=== PATIENT | female | born 1955 | race Caucasian/White ===

== ENCOUNTER 2019-02-24 09:06 | Emergency (ER) | payer BC, OTHER ==
[2019-02-24] MEDS ORDERED: Sodium Chloride 0.9% 10 ML Syringe FLUSH PRN ×2 (09:28→09:59)
[2019-02-24] MEDS ORDERED: Ondansetron 4 MG/2 ML SDV IVPUSH ONE (09:28)
[2019-02-24] MEDS ORDERED: Sodium Chloride 0.9% 1,000 ML IV STA (09:28)
[2019-02-24] MEDS ORDERED: Diatrizoate Meglumine/Diatrizoate Sodium 37% 120 ML Bottle PO ONE (09:59)
[2019-02-24] MEDS ORDERED: Iopamidol 612 MG/ML 100 ML Bottle IVPUSH ONE (09:59)
[2019-02-24] MEDS ORDERED: HYDROmorphone 1 MG/ML Syringe IVPUSH ONE (10:23)
[2019-02-24] MEDS ORDERED: fentaNYL 100 MCG/2 ML SDV IVPUSH ONE (11:45)
--- NOTE | 2019-02-24 11:46 | CT ---
CT abdomen and pelvis Technique: Multiple axial sections were obtained from above the dome of the diaphragm inferiorly through the pubic symphysis. Intravenous and oral contrast was utilized. Delayed images were also obtained through the abdomen and pelvis. Comparison: No prior abdominal imaging is available. Findings: Visualized lung bases show nothing acute. Cyst is noted within the left lobe of the liver measuring 1.8 cm. No additional abnormality is appreciated within the liver. Surgical clips are seen from prior cholecystectomy. Spleen appears within normal limits. Adrenal gland on the right side shows a nodule which appears decreased in density which is most likely due to to an adrenal adenoma measuring 1.6 cm. Pancreas is within normal limits. Aorta shows no aneurysm. Atherosclerotic calcification noted within the aorta. Multiple parapelvic cysts seen within both kidneys. Several small cortical cysts are also noted. Delayed images show contrast excretion into nondilated ureters with contrast noted within the bladder. No retroperitoneal adenopathy is seen. No mesenteric abnormalities are seen. Short appendix is seen believed to be within normal limits. Anastomotic sutures are noted at the junction of the sigmoid colon and descending colon. Several sigmoid diverticuli are seen near the junction of the descending and sigmoid colon. Very minimal inflammatory change is seen around one of the diverticuli and very minimal diverticulitis is possible. No additional pelvic abnormality is seen. Bone window settings were reviewed. Degenerative change scattered within the spine. Impression: 1. Possible minimal diverticulitis. 2. Other findings as noted above believed to be incidental. Diagnostic code #3 This report was dictated in [place] Standard Time
[2019-02-24] MEDS ORDERED: cefTRIAXone 2 GM in Sodium Chloride 0.9% 100 ML IV ONE (12:35)
--- NOTE | 2019-02-24 13:12 | EDM.PDOC ---
ED HPI GENERAL MEDICAL PROBLEM - General Chief Complaint: Abdominal Pain Stated Complaint: LOWER ABDOMINAL PAIN Time Seen by Provider: 02/24/19 09:19 Source of Information: Reports: Patient History Limitations: Reports: No Limitations - History of Present Illness INITIAL COMMENTS - FREE TEXT/NARRATIVE: The patient presents with lower abdominal pain. This started a few days ago. She has a history of diverticulitis and had a sigmoid resection years ago. She has no fever or chills. She has no nausea or vomiting but she has decreased appetite. She has no dysuria. She has no chest pain or shortness of breath. Onset: Gradual Duration: Day(s): Location: Reports: Abdomen Quality: Reports: Sharp Severity: Moderate Improves with: Reports: None Worsens with: Reports: None Associated Symptoms: Denies: Chest Pain, Cough, Fever/Chills, Headaches, Nausea/ Vomiting, Shortness of Breath Lower Abdominal Pain Score (Numeric/FACES): 8 - Related Data Allergies Allergy/AdvReac Type Severity Reaction Status Date / Time NARCOTICS AdvReac Nausea and Uncoded 02/24/19 09:15 Vomiting Home Meds: Home Meds Amoxicillin/Potassium Clav [Augmentin 875-125 Tablet] 1 each PO BID #20 tablet 02/24/19 [Rx] Hydrocodone/Acetaminophen [Hydrocodon-Acetaminophen 5-325] 1 - 2 each PO Q6HR PRN #20 tablet 02/24/19 [Rx] Omeprazole Magnesium [Prilosec Otc] 20 mg PO DAILY 02/24/19 [History] Past Medical History HEENT History: Reports: Impaired Vision Cardiovascular History: Reports: Heart Murmur Gastrointestinal History: Reports: Cholelithiasis, GERD, Other (See Below) Genitourinary History: Reports: None Musculoskeletal History: Reports: Arthritis Neurological History: Reports: Migraines Psychiatric History: Reports: None Endocrine/Metabolic History: Reports: None Hematologic History: Reports: None Immunologic History: Reports: None Oncologic (Cancer) History: Reports: None Dermatologic History: Reports: None - Infectious Disease History Infectious Disease History: Reports: None - Past Surgical History HEENT Surgical History: Reports: Adenoidectomy, Oral Surgery, Tonsillectomy GI Surgical History: Reports: Cholecystectomy, Colon Other GI Surgeries/Procedures: resection Social & Family History - Family History Family Medical History: Noncontributory - Tobacco Use Smoking Status *Q: Never Smoker - Caffeine Use Caffeine Use: Reports: Coffee, Tea - Recreational Drug Use Recreational Drug Use: No - Living Situation & Occupation Living situation: Reports: (Self-employed) Occupation: Employed ED ROS GENERAL - Review of Systems Review Of Systems: See Below Constitutional: Reports: No Symptoms HEENT: Reports: No Symptoms Respiratory: Reports: No Symptoms Cardiovascular: Reports: No Symptoms Endocrine: Reports: No Symptoms GI/Abdominal: Reports: Abdominal Pain : Reports: No Symptoms Musculoskeletal: Reports: No Symptoms ED EXAM, GI/ABD - Physical Exam Exam: See Below Exam Limited By: No Limitations General Appearance: Alert, No Apparent Distress Ears: Normal External Exam Nose: Normal Inspection Head: Atraumatic, Normocephalic Neck: Normal Inspection Respiratory/Chest: No Respiratory Distress, Lungs Clear, Normal Breath Sounds Cardiovascular: Regular Rate, Rhythm, No Edema, No Murmur GI/Abdominal Exam: Soft, No Organomegaly, No Mass, Tender (Moderate tenderness to the lower abdomen) Course - Vital Signs Last Recorded V/S: Last Vital Signs Temp 98.8 F 02/24/19 09:13 Pulse 78 02/24/19 09:13 Resp 16 02/24/19 09:13 BP 136/83 02/24/19 09:13 Pulse Ox 97 02/24/19 09:13 - Orders/Labs/Meds Orders: Active Orders 24 hr Category Date Time Status Peripheral IV Care [RC] . DIRECTED Care 02/24/19 09:29 Active Sodium Chloride 0.9% [Saline Flush] Med 02/24/19 09:28 Active 10 ml FLUSH ASDIRECTED PRN Sodium Chloride 0.9% [Saline Flush] Med 02/24/19 09:59 Active 10 ml FLUSH ONETIME PRN ED Antiemetic Medication Reflex [OM.PC] Stat Oth 02/24/19 09:29 Ordered Peripheral IV Insertion Adult [OM.PC] Stat Oth 02/24/19 09:28 Ordered Medication Orders Sodium Chloride (Saline Flush) 10 ml FLUSH ASDIRECTED PRN PRN Reason: Keep Vein Open Last Admin: 02/24/19 09:41 Dose: 10 ml Sodium Chloride (Saline Flush) 10 ml FLUSH ONETIME PRN PRN Reason: IV FLUSH Last Admin: 02/24/19 10:53 Dose: 10 ml Labs: Laboratory Tests 02/24/19 02/24/19 02/24/19 Range/Units 09:25 09:35 09:35 WBC 6.84 (3.98-10.04) K/mm3 RBC 4.81 (3.98-5.22) M/mm3 Hgb 13.3 (11.2-15.7) gm/dl Hct 40.8 (34.1-44.9) % MCV 84.8 (79.4-94.8) fl MCH 27.7 (25.6-32.2) pg MCHC 32.6 (32.2-35.5) g/dl RDW Std Deviation 47.4 H (36.4-46.3) fL Plt Count 263 (182-369) K/mm3 MPV 8.5 L (9.4-12.3) fl Neut % (Auto) 66.5 (34.0-71.1) % Lymph % (Auto) 23.1 (19.3-51.7) % [place] % (Auto) 7.2 (4.7-12.5) % Eos % (Auto) 2.3 (0.7-5.8) Baso % (Auto) 0.6 (0.1-1.2) % Neut # (Auto) 4.55 (1.56-6.13) K/mm3 Lymph # (Auto) 1.58 (1.18-3.74) K/mm3 [place] # (Auto) 0.49 H (0.24-0.36) K/mm3 Eos # (Auto) 0.16 (0.04-0.36) K/mm3 Baso # (Auto) 0.04 (0.01-0.08) K/mm3 Sodium 145 (136-145) mEq/L Potassium 4.3 (3.5-5.1) mEq/L Chloride 110 H (98-107) mEq/L Carbon Dioxide 24 (21-32) mEq/L Anion Gap 15.3 H (5-15) BUN 19 H (7-18) mg/dL Creatinine 0.8 (0.55-1.02) mg/dL Est Cr Clr Drug Dosing 73.55 mL/min Estimated GFR (MDRD) > 60 (>60) mL/min BUN/Creatinine Ratio 23.8 H (14-18) Glucose 93 (80-115) mg/dL Calcium 8.8 (8.5-10.1) mg/dL Total Bilirubin 0.4 (0.2-1.0) mg/dL AST 13 L (15-37) U/L ALT 21 (14-59) U/L Alkaline Phosphatase 114 (46-116) U/L Total Protein 7.0 (6.4-8.2) g/dl Albumin 3.5 (3.4-5.0) g/dl Globulin 3.5 gm/dL Albumin/Globulin Ratio 1.0 (1-2) Lipase 139 (73-393) U/L Urine Color Yellow (Yellow) Urine Appearance Clear (Clear) Urine pH 5.5 (5.0-8.0) Ur Specific [place] > or = 1.030 (1.005-1.030) Urine Protein Negative (Negative) Urine Glucose (UA) Negative (Negative) Urine Ketones Negative (Negative) Urine Occult Blood Negative (Negative) Urine Nitrite Positive H (Negative) Urine Bilirubin Negative (Negative) Urine Urobilinogen 0.2 (0.2-1.0) Ur Leukocyte Esterase Negative (Negative) Urine RBC 0-5 (0-5) /hpf Urine WBC 0-5 (0-5) /hpf Ur Squamous Epith Cells 0-5 (0-5) /hpf Amorphous Sediment Few H (NOT SEEN) /hpf Urine Bacteria Many H (FEW) /hpf Urine Mucus Few (FEW) /hpf Meds: Medications Generic Name Dose Route Start Last Admin Trade Name Freseth PRN Reason Stop Dose Admin Sodium Chloride 10 ml 02/24/19 09:28 02/24/19 09:41 Saline Flush FLUSH 10 ml ASDIRECTED PRN Administration Keep Vein Open Sodium Chloride 10 ml 02/24/19 09:59 02/24/19 10:53 Saline Flush FLUSH 10 ml ONETIME PRN Administration IV FLUSH Discontinued Medications Generic Name Dose Route Start Last Admin Trade Name Freq PRN Reason Stop Dose Admin Diatrizoate Meglum/Diatrizoate Sod 120 ml 02/24/19 09:59 02/24/19 10:53 Gastrografin 37% PO 02/24/19 10:00 90 ml ONETIME ONE Administration Fentanyl 100 mcg 02/24/19 11:45 02/24/19 11:56 Sublimaze IVPUSH 02/24/19 11:46 100 mcg ONETIME ONE Administration Hydromorphone HCl 1 mg 02/24/19 10:23 02/24/19 10:30 Dilaudid IVPUSH 02/24/19 10:24 1 mg ONETIME ONE Administration Sodium Chloride 1,000 mls @ 1,000 mls/hr 02/24/19 09:28 02/24/19 09:37 Normal Saline IV 02/24/19 10:27 1,000 mls/hr .BOLUS STA Administration Ceftriaxone Sodium 2 gm/ 100 mls @ 200 mls/hr 02/24/19 12:35 02/24/19 12:47 Sodium Chloride IV 02/24/19 13:04 200 mls/hr ONETIME ONE Administration Iopamidol 100 ml 02/24/19 09:59 02/24/19 10:53 Isovue-300 (61%) IVPUSH 02/24/19 10:00 100 ml ONETIME ONE Administration Ondansetron HCl 4 mg 02/24/19 09:28 02/24/19 09:37 Zofran IVPUSH 02/24/19 09:29 4 mg ONETIME ONE Administration - Re-Assessments/Exams Free Text/Narrative Re-Assessment/Exam: 02/24/19 13:10 I ordered an IV NS 1L bolus, zofran 4mg IV, labs, UA and a CT of her abdomen and pelvis. Her CBC looks good. Her anion gap is elevated at 15.3. Her UA shows nitrites and bacteria. Her CT shows possible minimal diverticulitis. I will give her a dose of rocphin and get her on some augmentin and something for pain. Departure - Departure Time of Disposition: 13:15 Disposition: Home, Self-Care 01 Condition: Good Clinical Impression: Diverticulitis UTI (urinary tract infection) Qualifiers: Urinary tract infection type: site unspecified Hematuria presence: without hematuria Qualified Code(s): N39.0 - Urinary tract infection, site not specified - Discharge Information *PRESCRIPTION DRUG MONITORING PROGRAM REVIEWED*: Not Applicable *COPY OF PRESCRIPTION DRUG MONITORING REPORT IN PATIENT WILMER: Not Applicable Prescriptions: Hydrocodone/Acetaminophen [Hydrocodon-Acetaminophen 5-325] 1 - 2 each PO Q6HR PRN #20 tablet PRN Reason: Pain Amoxicillin/Potassium Clav [Augmentin 875-125 Tablet] 1 each PO BID #20 tablet Referrals: PCP,None [Primary Care Provider] - Annalee Morgan PA-C [Physician [facility]] - 1 Week Additional Instructions: Drink plenty of fluids. Take the augmenting 2 times per day for 10 days. Take tylenol or motrin for pain. If that does not help, try the hydrocodone. Please return if you are worse. Sepsis Event Note - Evaluation Sepsis Screening Result: No Definite Risk - Focused Exam Vital Signs: Vital Signs Temp Pulse Resp BP Pulse Ox 02/24/19 09:13 98.8 F 78 16 136/83 97 Date Exam was Performed: 02/24/19 Time Exam was Performed: 13:06 - My Orders Last 24 Hours: My Active Orders 02/24/19 09:28 Sodium Chloride 0.9% [Saline Flush] 10 ml FLUSH ASDIRECTED PRN Peripheral IV Insertion Adult [OM.PC] Stat 02/24/19 09:29 Peripheral IV Care [RC] . DIRECTED ED Antiemetic Medication Reflex [OM.PC] Stat 02/24/19 09:59 Sodium Chloride 0.9% [Saline Flush] 10 ml FLUSH ONETIME PRN - Assessment/Plan Last 24 Hours: My Active Orders 02/24/19 09:28 Sodium Chloride 0.9% [Saline Flush] 10 ml FLUSH ASDIRECTED PRN Peripheral IV Insertion Adult [OM.PC] Stat 02/24/19 09:29 Peripheral IV Care [RC] . DIRECTED ED Antiemetic Medication Reflex [OM.PC] Stat 02/24/19 09:59 Sodium Chloride 0.9% [Saline Flush] 10 ml FLUSH ONETIME PRN
== END 2019-02-24 13:25 | disposition home or self-care (01) ==
LOC: JD.ED 09:06
DX: K57.92 Diverticulitis of intestine, part unspecified, without perforation or abscess without bleeding (principal); N39.0 Urinary tract infection, site not specified; Z88.5 Allergy status to narcotic agent
CPT/HCPCS: 36415; 74177; 80053; 81001; 83690; 85025; 96361; 96365; 96375; 99284; J0696; J1170; J2405; J3010; J7030; J7050; Q9963; Q9967

== ENCOUNTER 2019-03-01 15:59 | Emergency (ER) | payer BC ==
[2019-03-01] MEDS ORDERED: Sodium Chloride 0.9% 10 ML Syringe FLUSH PRN (16:42)
[2019-03-01] MEDS ORDERED: Ondansetron 4 MG/2 ML SDV IVPUSH ONE (16:42)
[2019-03-01] MEDS ORDERED: HYDROmorphone 0.5 MG/0.5 ML Syringe IVPUSH ONE (16:42)
[2019-03-01] MEDS ORDERED: Sodium Chloride 0.9% 1,000 ML IV SCH (16:45)
--- NOTE | 2019-03-01 16:49 | EDM.PDOC ---
ED HPI GENERAL MEDICAL PROBLEM - General Chief Complaint: Abdominal Pain Stated Complaint: DIVERTICULITIS NOT GETTING BETTER Time Seen by Provider: 03/01/19 16:28 Source of Information: Reports: Patient History Limitations: Reports: No Limitations - History of Present Illness INITIAL COMMENTS - FREE TEXT/NARRATIVE: Patient is a 63-year-old female who presents with complaints of abdominal pain and diarrhea. She was seen in the emergency department for the symptoms 5 days ago and diagnosed with diverticulitis. She received a dose of Rocephin in the ER and was started on Augmentin at that time. She states since that time the pain has worsened and she continues to have frequent diarrhea. The pain is located on the left side of her abdomen. She has a history of recurrent diverticulitis and has had a sigmoid resection in the past. She states that her episodes of diverticulitis have never been able to resolve with oral antibiotics. She has always had to be admitted to the hospital to receive IV antibiotics. She denies any vomiting, however states she has been nauseous. She states that she tried to "tough it out" but she couldn't handle it anymore. Abdomen Pain Score (Numeric/FACES): 10 - Related Data Allergies Allergy/AdvReac Type Severity Reaction Status Date / Time NARCOTICS AdvReac Nausea and Uncoded 03/01/19 16:27 Vomiting Home Meds: Home Meds Amoxicillin/Potassium Clav [Augmentin 875-125 Tablet] 1 each PO BID #20 tablet 02/24/19 [Rx] Hydrocodone/Acetaminophen [Hydrocodon-Acetaminophen 5-325] 1 - 2 each PO Q6HR PRN #20 tablet 02/24/19 [Rx] Omeprazole Magnesium [Prilosec Otc] 20 mg PO DAILY 02/24/19 [History] Dicyclomine [Bentyl] 20 mg PO Q6H PRN #20 tab 03/01/19 [Rx] L.acidoph,Paracasei, B.lactis [Probiotic] 1 each PO DAILY #30 capsule 03/01/19 [ Rx] levoFLOXacin [Levaquin] 750 mg PO DAILY 7 Days #6 tab 03/01/19 [Rx] metroNIDAZOLE [Flagyl] 500 mg PO Q8HR 7 Days #20 tablet 03/01/19 [Rx] Past Medical History HEENT History: Reports: Impaired Vision Cardiovascular History: Reports: Heart Murmur Gastrointestinal History: Reports: Cholelithiasis, GERD, Other (See Below) Genitourinary History: Reports: None Musculoskeletal History: Reports: Arthritis Neurological History: Reports: Migraines Psychiatric History: Reports: None Endocrine/Metabolic History: Reports: None Hematologic History: Reports: None Immunologic History: Reports: None Oncologic (Cancer) History: Reports: None Dermatologic History: Reports: None - Infectious Disease History Infectious Disease History: Reports: None - Past Surgical History HEENT Surgical History: Reports: Adenoidectomy, Oral Surgery, Tonsillectomy GI Surgical History: Reports: Cholecystectomy, Colon Other GI Surgeries/Procedures: resection Social & Family History - Family History Family Medical History: Noncontributory - Caffeine Use Caffeine Use: Reports: Coffee, Tea - Living Situation & Occupation Living situation: Reports: (Self-employed) Occupation: Employed ED ROS GENERAL - Review of Systems Review Of Systems: See Below Constitutional: Reports: Chills. Denies: Fever HEENT: Reports: No Symptoms Respiratory: Reports: No Symptoms Cardiovascular: Reports: No Symptoms Endocrine: Reports: No Symptoms GI/Abdominal: Reports: Abdominal Pain, Diarrhea, Nausea. Denies: Vomiting : Reports: No Symptoms Musculoskeletal: Reports: No Symptoms Skin: Reports: No Symptoms Neurological: Reports: No Symptoms. Denies: Dizziness Psychiatric: Reports: No Symptoms Hematologic/Lymphatic: Reports: No Symptoms Immunologic: Reports: No Symptoms ED EXAM, GI/ABD - Physical Exam Exam: See Below Exam Limited By: No Limitations General Appearance: Alert, WD/WN, Mild Distress Respiratory/Chest: No Respiratory Distress, Lungs Clear, Normal Breath Sounds, No Accessory Muscle Use, Chest Non-Tender Cardiovascular: Normal Peripheral Pulses, Regular Rate, Rhythm, No Edema, No Murmur GI/Abdominal Exam: Normal Bowel Sounds, Soft, Tender (Moderate tenderness to the left upper and left lower quadrants.). No: Rigid Neurological: Alert, Oriented, Normal Cognition Psychiatric: Normal Affect, Normal Mood Skin Exam: Warm, Dry, Intact, Normal Color, No Rash Lymphatic: No Adenopathy Course - Vital Signs Last Recorded V/S: Last Vital Signs Temp 97.4 F 03/01/19 16:25 Pulse 82 03/01/19 16:25 Resp 16 03/01/19 16:25 BP 132/85 03/01/19 16:25 Pulse Ox 100 03/01/19 16:25 - Orders/Labs/Meds Orders: Active Orders 24 hr Category Date Time Status Peripheral IV Care [RC] . DIRECTED Care 03/01/19 16:42 Active Sodium Chloride 0.9% [Normal Saline] 1,000 ml Med 03/01/19 16:45 Active IV ASDIRECTED Sodium Chloride 0.9% [Saline Flush] Med 03/01/19 16:42 Active 10 ml FLUSH ASDIRECTED PRN Peripheral IV Insertion Adult [OM.PC] Stat Oth 03/01/19 16:41 Ordered Medication Orders Sodium Chloride (Normal Saline) 1,000 mls @ 150 mls/hr IV ASDIRECTED AIDA Last Admin: 03/01/19 16:58 Dose: 150 mls/hr Sodium Chloride (Saline Flush) 10 ml FLUSH ASDIRECTED PRN PRN Reason: Keep Vein Open Last Admin: 03/01/19 17:00 Dose: 10 ml Labs: Laboratory Tests 03/01/19 03/01/19 Range/Units 16:30 16:30 WBC 6.49 (3.98-10.04) K/mm3 RBC 4.88 (3.98-5.22) M/mm3 Hgb 13.5 (11.2-15.7) gm/dl Hct 40.8 (34.1-44.9) % MCV 83.6 (79.4-94.8) fl MCH 27.7 (25.6-32.2) pg MCHC 33.1 (32.2-35.5) g/dl RDW Std Deviation 46.3 (36.4-46.3) fL Plt Count 294 (182-369) K/mm3 MPV 8.5 L (9.4-12.3) fl Neut % (Auto) 57.1 (34.0-71.1) % Lymph % (Auto) 29.6 (19.3-51.7) % [place] % (Auto) 8.5 (4.7-12.5) % Eos % (Auto) 3.9 (0.7-5.8) Baso % (Auto) 0.6 (0.1-1.2) % Neut # (Auto) 3.71 (1.56-6.13) K/mm3 Lymph # (Auto) 1.92 (1.18-3.74) K/mm3 [place] # (Auto) 0.55 H (0.24-0.36) K/mm3 Eos # (Auto) 0.25 (0.04-0.36) K/mm3 Baso # (Auto) 0.04 (0.01-0.08) K/mm3 Sodium 142 (136-145) mEq/L Potassium 3.9 (3.5-5.1) mEq/L Chloride 107 (98-107) mEq/L Carbon Dioxide 26 (21-32) mEq/L Anion Gap 12.9 (5-15) BUN 15 (7-18) mg/dL Creatinine 0.8 (0.55-1.02) mg/dL Est Cr Clr Drug Dosing 73.55 mL/min Estimated GFR (MDRD) > 60 (>60) mL/min BUN/Creatinine Ratio 18.8 H (14-18) Glucose 95 (80-115) mg/dL Calcium 8.9 (8.5-10.1) mg/dL Total Bilirubin 0.3 (0.2-1.0) mg/dL AST 15 (15-37) U/L ALT 25 (14-59) U/L Alkaline Phosphatase 124 H (46-116) U/L C-Reactive Protein 0.2 (<1.0) mg/dL Total Protein 7.2 (6.4-8.2) g/dl Albumin 3.5 (3.4-5.0) g/dl Globulin 3.7 gm/dL Albumin/Globulin Ratio 1.0 (1-2) Meds: Medications Generic Name Dose Route Start Last Admin Trade Name Freq PRN Reason Stop Dose Admin Sodium Chloride 1,000 mls @ 150 mls/hr 03/01/19 16:45 03/01/19 16:58 Normal Saline IV 150 mls/hr ASDIRECTED AIDA Administration Sodium Chloride 10 ml 03/01/19 16:42 03/01/19 17:00 Saline Flush FLUSH 10 ml ASDIRECTED PRN Administration Keep Vein Open Discontinued Medications Generic Name Dose Route Start Last Admin Trade Name Freq PRN Reason Stop Dose Admin Hydromorphone HCl 0.5 mg 03/01/19 16:42 03/01/19 17:01 Dilaudid IVPUSH 03/01/19 16:43 0.5 mg ONETIME ONE Administration Ketorolac Tromethamine 30 mg 03/01/19 16:59 03/01/19 17:05 Toradol IVPUSH 03/01/19 17:00 30 mg ONETIME ONE Administration Ondansetron HCl 4 mg 03/01/19 16:42 03/01/19 16:59 Zofran IVPUSH 03/01/19 16:43 4 mg ONETIME ONE Administration - Re-Assessments/Exams Free Text/Narrative Re-Assessment/Exam: 03/01/19 16:50 Patient returns to the ER today with worsening abdominal pain. He was last seen here on 24 February and diagnosed with diverticulitis at that time. She did receive a dose of Rocephin and was placed on Augmentin. She has taken these medications as prescribed but states the symptoms are worsening. I'll start with a CBC, CMP, and CRP. I have ordered IV fluids, Dilaudid for pain, and Zofran for nausea. 03/01/19 17:38 Patient's laboratory studies were grossly unremarkable. WBCs were normal. CRP was normal. I gave the patient the option of repeating the CT scan or trying a different regimen of antibiotics as it's possible that the Augmentin itself may be causing abdominal cramping and diarrhea. She opted to try a regimen of Levaquin and Flagyl. I will also start her on Bentyl as needed for abdominal cramping and recommend that she get started on a probiotic. I did discuss with her that if she is not having improvement in the next 2-3 days, she should return to have the CT repeated. She is in agreement with this plan. Departure - Departure Time of Disposition: 17:41 Disposition: Home, Self-Care 01 Condition: Fair Clinical Impression: Diverticulitis - Discharge Information *PRESCRIPTION DRUG MONITORING PROGRAM REVIEWED*: No *COPY OF PRESCRIPTION DRUG MONITORING REPORT IN PATIENT WILMER: No Prescriptions: metroNIDAZOLE [Flagyl] 500 mg PO Q8HR 7 Days #20 tablet Dicyclomine [Bentyl] 20 mg PO Q6H PRN #20 tab PRN Reason: abdominal cramping L.acidoph,Paracasei, B.lactis [Probiotic] 1 each PO DAILY #30 capsule levoFLOXacin [Levaquin] 750 mg PO DAILY 7 Days #6 tab Instructions: Diverticulitis, [id number] Referrals: PCP,None [Primary Care Provider] - Forms: ED Department Discharge Additional Instructions: You were seen in the emergency department tonight with continued abdominal pain and diarrhea. Your lab results did not show any signs of significant infection or inflammation. As we discussed, it is possible that the Augmentin may be contributing to her increased pain and diarrhea. The decision was made to try a different regimen of antibiotics. A prescription for Levaquin and Flagyl which are both antibiotics, Bentyl for abdominal cramping, and a probiotic [place] [facility] [place]. Take these medications as prescribed. If you are not having any improvement in your symptoms in the next 2-3 days we would recommend that you return to be reevaluated and possibly have the CT scan repeated. I would recommend that you do follow up with your primary care provider sometime next week even if your symptoms are improving. As always, if you experience any new or worsening symptoms please do not hesitate to return to the emergency department. Sepsis Event Note - Evaluation Sepsis Screening Result: No Definite Risk - Focused Exam Vital Signs: Vital Signs Temp Pulse Resp BP Pulse Ox 03/01/19 16:25 97.4 F 82 16 132/85 100 Date Exam was Performed: 03/01/19 Time Exam was Performed: 17:37 - My Orders Last 24 Hours: My Active Orders 03/01/19 16:41 Peripheral IV Insertion Adult [OM.PC] Stat 03/01/19 16:42 Peripheral IV Care [RC] . DIRECTED Sodium Chloride 0.9% [Saline Flush] 10 ml FLUSH ASDIRECTED PRN 03/01/19 16:45 Sodium Chloride 0.9% [Normal Saline] 1,000 ml IV ASDIRECTED - Assessment/Plan Last 24 Hours: My Active Orders 03/01/19 16:41 Peripheral IV Insertion Adult [OM.PC] Stat 03/01/19 16:42 Peripheral IV Care [RC] . DIRECTED Sodium Chloride 0.9% [Saline Flush] 10 ml FLUSH ASDIRECTED PRN 03/01/19 16:45 Sodium Chloride 0.9% [Normal Saline] 1,000 ml IV ASDIRECTED
[2019-03-01] MEDS ORDERED: Ketorolac 30 MG/ML SDV IVPUSH ONE (16:59)
[2019-03-01] MEDS ORDERED: metroNIDAZOLE 500 MG Tab PO ONE (17:40)
[2019-03-01] MEDS ORDERED: Levofloxacin 750 MG Tab PO ONE (17:40)
[2019-03-01] MEDS ORDERED: Dicyclomine 10 MG Cap PO ONE (17:41)
== END 2019-03-01 18:02 | disposition home or self-care (01) ==
LOC: JD.ED 15:59
DX: K57.92 Diverticulitis of intestine, part unspecified, without perforation or abscess without bleeding (principal); K21.9 Gastro-esophageal reflux disease without esophagitis; Z88.5 Allergy status to narcotic agent; Z79.899 Other long term (current) drug therapy
CPT/HCPCS: 36415; 80053; 85025; 86140; 96361; 96374; 96375; 99284; A9270; J1170; J1885; J2405; J7030; 99283

== ENCOUNTER 2019-08-07 22:12 | Emergency (ER) | payer BC, OTHER ==
[2019-08-07] MEDS ORDERED: Sodium Chloride 0.9% 1,000 ML IV ONE (22:30)
[2019-08-07] MEDS ORDERED: Ondansetron 4 MG/2 ML SDV IVPUSH ONE (22:31)
[2019-08-07] MEDS ORDERED: HYDROmorphone 1 MG/ML Syringe IVPUSH ONE ×2 (22:31→23:35)
--- NOTE | 2019-08-07 22:33 | EDM.PDOC ---
ED HPI GENERAL MEDICAL PROBLEM - General Chief Complaint: Trauma Stated Complaint: ROLLED BY COW Time Seen by Provider: 08/07/19 22:20 Source of Information: Reports: Patient, Family () History Limitations: Reports: No Limitations - History of Present Illness INITIAL COMMENTS - FREE TEXT/NARRATIVE: A trauma alert was called for this patient. Mrs. Leger is a pleasant 64-year-old woman who is now brought to the ED by her after she was attacked, rolled, and stepped on by a cow. The patient's tells me that the two of them freed a cow that was stuck in the mud around 21:30 tonight, but the cow then went crazy and attacked her. The patient states that she struck her head on the ground, but her head was not stepped on by the cow. She denies loss of consciousness. She is complaining of posterior neck pain; a cervical collar was placed upon arrival to the ED. She is also complaining of back pain - "all of it", as well as left thigh and left knee pain. She states that she hurts all over, but denies significant pain elsewhere. Here in the ED, the patient is found to be hemodynamically stable, afebrile, saturating 96% on room air. Other than tonight's injuries, the patient denies recent fever, chills, sore throat, ear pain, nasal or sinus congestion, cough, dyspnea, chest pain, palpitations, nausea, vomiting, constipation, diarrhea, abdominal pain, urinary symptoms, recent weight gain or weight loss, recent bloody bowel movements or black bowel movements, recent joint aches, headaches, or rashes. The patient states that she last ate around 20:00. The patient does not have a PCP. Neck Pain Score (Numeric/FACES): 8 - Related Data Allergies Allergy/AdvReac Type Severity Reaction Status Date / Time NARCOTICS AdvReac Nausea and Uncoded 08/07/19 22:26 Vomiting Home Meds: Home Meds Amoxicillin/Potassium Clav [Augmentin 875-125 Tablet] 1 each PO BID #20 tablet 02/24/19 [Rx] Hydrocodone/Acetaminophen [Hydrocodone-Acetamin 5-325 mg] 1 - 2 each PO Q6HR PRN #20 tablet 02/24/19 [Rx] Omeprazole Magnesium [Prilosec Otc] 20 mg PO DAILY 02/24/19 [History] Dicyclomine [Bentyl] 20 mg PO Q6H PRN #20 tab 03/01/19 [Rx] L.acidoph,Paracasei, B.lactis [Probiotic] 1 each PO DAILY #30 capsule 03/01/19 [ Rx] levoFLOXacin [Levaquin] 750 mg PO DAILY 7 Days #6 tab 03/01/19 [Rx] metroNIDAZOLE [Flagyl] 500 mg PO Q8HR 7 Days #20 tablet 03/01/19 [Rx] Past Medical History HEENT History: Reports: Impaired Vision Gastrointestinal History: Reports: Diverticulosis (diverticulitis), GERD Musculoskeletal History: Reports: Arthritis Neurological History: Reports: Migraines Endocrine/Metabolic History: Reports: Obesity/BMI 30+ - Past Surgical History GI Surgical History: Reports: Appendectomy, Cholecystectomy (2010), Colon ( sigmoidectomy for diverticulitis 2009) Female Surgical History: Reports: Hysterectomy (partial), Salpingo- Oophorectomy, Other (See Below) (Ovarian cystectomy x 3) Social & Family History - Family History Family Medical History: Noncontributory - Tobacco Use Smoking Status *Q: Former Smoker Years of Tobacco use: 17 Packs/Tins Daily: 2 Month/Year Tobacco Last Used: Quit 1989 or 1990 - Caffeine Use Caffeine Use: Reports: Coffee, Tea - Alcohol Use Alcohol Use History: Yes Alcohol Use Frequency: Rarely - Recreational Drug Use Recreational Drug Use: No - Living Situation & Occupation Living situation: Reports: , with Spouse Occupation: Employed ([employer]) Review of Systems - Review of Systems Review Of Systems: Comprehensive ROS is negative, except as noted in HPI. ED EXAM, GENERAL - Physical Exam Exam: See Below Exam Limited By: No Limitations General Appearance: Alert, WD/WN, Mild Distress (appears uncomfortable) Eye Exam: Bilateral Eye: EOMI, Normal Inspection, PERRL Ears: Normal External Exam, Normal Canal, Hearing Grossly Normal, Normal TMs Nose: Normal Inspection, Normal Mucosa, No Blood Throat/Mouth: Normal Inspection, Normal Lips, Normal Teeth, Normal Gums, Normal Oropharynx, Normal Voice, No Airway Compromise Head: Atraumatic, Normocephalic Neck: Other (Cervical collar kept in place) Respiratory/Chest: No Respiratory Distress, Lungs Clear, Normal Breath Sounds ( limited excursion due to pain), No Accessory Muscle Use Cardiovascular: Normal Peripheral Pulses, Regular Rate, Rhythm, No Gallop, No JVD, No Murmur, No Rub Peripheral Pulses: 3+: Radial (L), Radial (R), Posterior Tibial (L), Posterior Tibial (R), Dorsalis Pedis (L), Dorsalis Pedis (R) GI/Abdominal: Normal Bowel Sounds, Soft, No Organomegaly, No Distention, No Abnormal Bruit, No Mass, Tender (Generalized, non-focal) (Female) Exam: Deferred Rectal (Female) Exam: Deferred Back Exam: Normal Inspection (No visible abnormalities, such as swelling, erythema, ecchymosis, or abrasion), Vertebral Tenderness Extremities: Normal Inspection (No visible abnormalities, such as swelling, erythema, ecchymosis, abrasion, or laceration), Normal Range of Motion (with pain), Normal Capillary Refill, Other (The patient reports tenderness to palpation of her distal left femur and left knee. No left leg/ankle/foot tenderness, and no right lower extremity tenderness. Neurovascular status of both lower extremities is intact.) Neurological: Alert, Oriented, CN II-XII Intact, Normal Cognition, No Motor/ Sensory Deficits (Somewhat diminished strength due to pain) Psychiatric: Normal Affect Skin Exam: Warm, Dry, Intact, Normal Color, No Rash Course - Vital Signs Last Recorded V/S: Last Vital Signs Temp 36.1 C 08/07/19 23:24 Pulse 74 08/08/19 00:18 Resp 16 08/08/19 00:18 BP 114/75 08/08/19 00:18 Pulse Ox 97 08/08/19 00:18 - Orders/Labs/Meds Orders: Active Orders 24 hr Category Date Time Status Cervical Spine wo Cont [CT] Stat Exams 08/07/19 22:30 Taken Chest Abdomen Pelvis w Cont [CT] Stat Exams 08/07/19 22:30 Taken Femur Min 2V Lt [CR] Stat Exams 08/07/19 22:46 Taken Head wo Cont [CT] Stat Exams 08/07/19 22:30 Taken Knee 3V Lt [CR] Stat Exams 08/07/19 22:47 Taken Sodium Chloride 0.9% [Normal Saline] 1,000 ml Med 08/07/19 22:30 Active IV ONETIME Medication Orders Sodium Chloride (Normal Saline) 1,000 mls @ 150 mls/hr IV ONETIME ONE Stop: 08/08/19 05:09 Last Admin: 08/07/19 22:36 Dose: 150 mls/hr Labs: Laboratory Tests 08/07/19 08/07/19 08/07/19 Range/Units 22:30 22:30 22:30 WBC 7.09 (3.98-10.04) K/mm3 RBC 4.48 (3.98-5.22) M/mm3 Hgb 12.5 (11.2-15.7) gm/dl Hct 39.0 (34.1-44.9) % MCV 87.1 D (79.4-94.8) fl MCH 27.9 (25.6-32.2) pg MCHC 32.1 L (32.2-35.5) g/dl RDW Std Deviation 45.9 (36.4-46.3) fL Plt Count 262 (182-369) K/mm3 MPV 8.5 L (9.4-12.3) fl Neutrophils % (Manual) 63 H (40-60) % Band Neutrophils % 0 (0-10) % Lymphocytes % (Manual) 20 (20-40) % Atypical Lymphs % 0 % Monocytes % (Manual) 11 H (2-10) % Eosinophils % (Manual) 5 (0.7-5.8) % Basophils % (Manual) 1 (0.1-1.2) Platelet Estimate Adequate RBC Morph Comment Normal PT 9.8 (9.7-12.0) SECONDS INR 0.93 APTT 23 (22-31) SECONDS Sodium 144 (136-145) mEq/L Potassium 3.6 (3.5-5.1) mEq/L Chloride 110 H (98-107) mEq/L Carbon Dioxide 23 (21-32) mEq/L Anion Gap 14.6 (5-15) BUN 20 H (7-18) mg/dL Creatinine 1.0 (0.55-1.02) mg/dL Est Cr Clr Drug Dosing 57.04 mL/min Estimated GFR (MDRD) 56 (>60) mL/min BUN/Creatinine Ratio 20.0 H (14-18) Glucose 116 H (80-115) mg/dL Calcium 8.6 (8.5-10.1) mg/dL Total Bilirubin 0.3 (0.2-1.0) mg/dL AST 15 (15-37) U/L ALT 19 (14-59) U/L Alkaline Phosphatase 101 (46-116) U/L Total Protein 6.5 (6.4-8.2) g/dl Albumin 3.3 L (3.4-5.0) g/dl Globulin 3.2 gm/dL Albumin/Globulin Ratio 1.0 (1-2) Urine Color (Yellow) Urine Appearance (Clear) Urine pH (5.0-8.0) Ur Specific [place] (1.005-1.030) Urine Protein (Negative) Urine Glucose (UA) (Negative) Urine Ketones (Negative) Urine Occult Blood (Negative) Urine Nitrite (Negative) Urine Bilirubin (Negative) Urine Urobilinogen (0.2-1.0) Ur Leukocyte Esterase (Negative) U Hyaline Cast (Auto) (0-5) /lpf Urine RBC (0-5) /hpf Urine WBC (0-5) /hpf Ur Squamous Epith Cells (0-5) /hpf Urine Bacteria (FEW) /hpf Urine Mucus (FEW) /hpf 06// Range/Units 00:14 WBC (3.98-10.04) K/mm3 RBC (3.98-5.22) M/mm3 Hgb (11.2-15.7) gm/dl Hct (34.1-44.9) % MCV (79.4-94.8) fl MCH (25.6-32.2) pg MCHC (32.2-35.5) g/dl RDW Std Deviation (36.4-46.3) fL Plt Count (182-369) K/mm3 MPV (9.4-12.3) fl Neutrophils % (Manual) (40-60) % Band Neutrophils % (0-10) % Lymphocytes % (Manual) (20-40) % Atypical Lymphs % % Monocytes % (Manual) (2-10) % Eosinophils % (Manual) (0.7-5.8) % Basophils % (Manual) (0.1-1.2) Platelet Estimate RBC Morph Comment PT (9.7-12.0) SECONDS INR APTT (22-31) SECONDS Sodium (136-145) mEq/L Potassium (3.5-5.1) mEq/L Chloride (98-107) mEq/L Carbon Dioxide (21-32) mEq/L Anion Gap (5-15) BUN (7-18) mg/dL Creatinine (0.55-1.02) mg/dL Est Cr Clr Drug Dosing mL/min Estimated GFR (MDRD) (>60) mL/min BUN/Creatinine Ratio (14-18) Glucose (80-115) mg/dL Calcium (8.5-10.1) mg/dL Total Bilirubin (0.2-1.0) mg/dL AST (15-37) U/L ALT (14-59) U/L Alkaline Phosphatase (46-116) U/L Total Protein (6.4-8.2) g/dl Albumin (3.4-5.0) g/dl Globulin gm/dL Albumin/Globulin Ratio (1-2) Urine Color Yellow (Yellow) Urine Appearance Clear (Clear) Urine pH 5.5 (5.0-8.0) Ur Specific [place] 1.020 (1.005-1.030) Urine Protein Negative (Negative) Urine Glucose (UA) Negative (Negative) Urine Ketones Negative (Negative) Urine Occult Blood Negative (Negative) Urine Nitrite Negative (Negative) Urine Bilirubin Negative (Negative) Urine Urobilinogen 0.2 (0.2-1.0) Ur Leukocyte Esterase Negative (Negative) U Hyaline Cast (Auto) 0-5 (0-5) /lpf Urine RBC 0-5 (0-5) /hpf Urine WBC 0-5 (0-5) /hpf Ur Squamous Epith Cells 0-5 (0-5) /hpf Urine Bacteria Few (FEW) /hpf Urine Mucus Moderate H (FEW) /hpf Meds: Medications Generic Name Dose Route Start Last Admin Trade Name Freq PRN Reason Stop Dose Admin Sodium Chloride 1,000 mls @ 150 mls/hr 08/07/19 22:30 08/07/19 22:36 Normal Saline IV 08/08/19 05:09 150 mls/hr ONETIME ONE Administration Discontinued Medications Generic Name Dose Route Start Last Admin Trade Name Freq PRN Reason Stop Dose Admin Hydromorphone HCl 1 mg 08/07/19 22:31 08/07/19 22:36 Dilaudid IVPUSH 08/07/19 22:32 1 mg ONETIME ONE Administration Hydromorphone HCl 1 mg 08/07/19 23:35 08/07/19 23:42 Dilaudid IVPUSH 08/07/19 23:36 1 mg ONETIME ONE Administration Ondansetron HCl 4 mg 08/07/19 22:31 08/07/19 22:36 Zofran IVPUSH 08/07/19 22:32 4 mg ONETIME ONE Administration - Re-Assessments/Exams Free Text/Narrative Re-Assessment/Exam: 08/07/19 22:32 As above, the patient states that she was attacked, Bharat, and stomped by a cow around 21:30 tonight. She is complaining primarily to pain in her posterior neck and her entire back, along with her left thigh and knee. I have ordered CT scans of her head and cervical spine without contrast, and a CT scan of her chest, abdomen, and pelvis with IV contrast, along with x-rays of her left femur and left knee. I have additionally ordered blood work and a urinalysis by quick catheter. In the meantime, the patient will be given IV fluid, IV Dilaudid, and IV Zofran. 08/07/19 23:28 2-view radiographs of the left femur and 3-view radiographs of the left knee appear to demonstrate osteopenia, but no acute injuries, such as fracture or dislocation. Formal read per the Radiologist pending. 08/07/19 23:41 The patient's CBC is unremarkable. Her CMP is remarkable for a chloride mildly elevated at 110, and a BUN slightly elevated at 20, with a Cr normal at 1.0. Her blood glucose is slightly elevated at 116, with the remainder of her CMP being unremarkable. Her coags are within normal limits. A urine sample has not yet been collected. CT of the head without contrast is read by [facility] as "No acute intracranial process." 08/07/19 23:44 CT of the chest with IV contrast as read by [facility] as: 1. No acute findings. 2. Mild cardiomegaly. 08/07/19 23:48 CT of the abdomen and pelvis with IV contrast is read as: 1. No evidence of traumatic injury to the abdomen or pelvis. 2. Left hepatic cyst measuring 17 mm. 3. 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 4. Bilateral hydronephrosis with renal pelvis distention right greater than left. Features suggest UPJ strictures. Mild left renal atrophy. Minor left renal cysts. 5. Previous cholecystectomy. 6. Previous hysterectomy. 08/07/19 23:51 CT of the cervical spine without contrast as read by David as: 1. No fracture or dislocation. 2. Degenerative cervical spine changes. 08/08/19 00:[address] of the cervical spine being negative, I opened the patient's cervical collar and examined her neck. Unfortunately, she reports significant tenderness to her lower cervical spine, therefore I replaced the collar. The patient believes that she can provide a urine sample. Once she is upright and moving around, and pending the urinalysis results, we will determine if she feels well enough to be discharged home. 08/08/19 00:56 The patient's urinalysis is unremarkable. 08/08/19 00:59 Test results discussed with the patient. She is now up to a bedside chair. I offered to place her into observation under the Trauma Surgeon, but she prefers to go home. We will switch her cervical collar to a [place], that she can continue to wear until her neck is feeling better. I will discharge her with an [facility] prescription for [place] and Zofran that she can take in addition to [id number] ibuprofen. I will refer her to a PCP for follow-up. Departure - Departure Time of Disposition: 01:00 Disposition: Home, Self-Care 01 Condition: Good Clinical Impression: Multiple contusions, Ureteral stricture - Discharge Information *PRESCRIPTION DRUG MONITORING PROGRAM REVIEWED*: Not Applicable *COPY OF PRESCRIPTION DRUG MONITORING REPORT IN PATIENT WILMER: Not Applicable Instructions: Contusion, [id number] Referrals: Kat Henriquez NP [Nurse Practitioner] - Forms: ED Department Discharge Additional Instructions: You were seen in the emergency room after being run over and trampled by a cow. Work-up in the ER included blood work, a urinalysis, x-rays of your left femur and left knee, and CT scans of your head, cervical spine, chest, abdomen, and pelvis. The CT scans found that you have ureteral strictures on both sides, which were not caused by your injury, with no other normalities found. No broken bones or dislocations were seen. The CT scan of your cervical spine returned negative, however, because of continued neck pain, you have been placed into a [place] cervical collar. You may continue to wear this until your neck is feeling better. You have been given prescriptions for both the opioid pain reliever [place] and the anti-nausea medicine Zofran via [facility]. We recommend that you take [id number] ibuprofen, 3 tablets (600 mg) up to every 8 hours, with food, as needed for discomfort. You may take 1 to 2 tablets of [place] up to every 6 hours, as needed for pain not relieved by ibuprofen. If you take [place], do not drive or operate heavy machinery for 12 hours afterwards. [place] may cause constipation, so consider taking a stool softener. You may dissolve 1 tablet of Zofran on your tongue up to every 8 hours, as needed for nausea/vomiting. It is very important that you stay active, even though you will be sore. Do not just lay in bed. Follow-up with Kat Henriquez NP, or one of the other providers in the clinic , to establish a PCP. If any other problems, please do not hesitate to return to the ER. Sepsis Event Note - Evaluation Sepsis Screening Result: No Definite Risk - Focused Exam Vital Signs: Vital Signs Temp Pulse Resp BP Pulse Ox 08/08/19 00:18 74 16 114/75 97 08/07/19 23:24 36.1 C 78 18 113/69 95 08/07/19 22:26 37.1 C 83 15 119/86 96 Date Exam was Performed: 08/08/19 Time Exam was Performed: 01:12 - My Orders Last 24 Hours: My Active Orders 08/07/19 22:30 Cervical Spine wo Cont [CT] Stat Chest Abdomen Pelvis w Cont [CT] Stat Head wo Cont [CT] Stat Sodium Chloride 0.9% [Normal Saline] 1,000 ml IV ONETIME 08/07/19 22:46 Femur Min 2V Lt [CR] Stat 08/07/19 22:47 Knee 3V Lt [CR] Stat - Assessment/Plan Last 24 Hours: My Active Orders 08/07/19 22:30 Cervical Spine wo Cont [CT] Stat Chest Abdomen Pelvis w Cont [CT] Stat Head wo Cont [CT] Stat Sodium Chloride 0.9% [Normal Saline] 1,000 ml IV ONETIME 08/07/19 22:46 Femur Min 2V Lt [CR] Stat 08/07/19 22:47 Knee 3V Lt [CR] Stat
--- NOTE | 2019-08-08 09:11 | CT ---
CT cervical spine Technique: Multiple axial sections were obtained from above C1 inferiorly to the top of T2. Reconstructed sagittal and coronal images were reviewed. Comparison: No prior cervical spine imaging is available. Findings: Mild disc space narrowing at C3-4 and C4-5. Severe disc space narrowing is noted at C5-6 and C6-7. Mild posterior osteophytes are noted at C5-6 and C6-7. Small air-filled cysts are seen off the inferior and superior endplates of C6 which are felt to be degenerative in etiology. Anterior osteophytes are noted at C4-5 and minimally at C5-6. Minimal right-sided neural foraminal stenosis is noted at C3-4. Moderate to severe left-sided neural foraminal stenosis is noted at C5-6 moderate to severe bilateral neural foraminal stenosis is noted at C6-7. Other neural foramina are patent. Mild degenerative change is scattered within the apophyseal joints. Degenerative change within the uncovertebral joints is noted throughout the cervical spine most prominent at C5-6 and C6-7. Minimal scoliosis is noted. No fracture is appreciated. No abnormal subluxation is noted. Impression: 1. Degenerative change as described above. 2. Nothing acute is appreciated on CT study of the cervical spine. Diagnostic code #2 This report was dictated in MDT I agree with preliminary report from [facility], finalized on 08/08/19, 12:49 AM Central Daylight Time
--- NOTE | 2019-08-08 09:33 | CR ---
Left femur: AP and lateral views left femur were obtained. Comparison: No previous femur study is available. Mild degenerative change is noted within the knee. No acute fracture or other abnormality is seen. Impression: 1. Mild degenerative change within the left knee. 2. Left femur study is otherwise unremarkable. Diagnostic code #2 This report was dictated in MDT
--- NOTE | 2019-08-08 09:35 | CT ---
Head CT Technique: Multiple axial sections through the brain were obtained. Intravenous contrast was not utilized. Comparison: No prior intracranial imaging is available. Findings: Ventricles along with basal cisterns and sulci over the convexities are within normal limits for the patient's age. No abnormal parenchymal densities are seen. No evidence of intracranial hemorrhage. No midline shift or mass-effect is seen. Bone window settings were reviewed. No acute calvarial finding is seen. Visualized paranasal sinuses and mastoid sinuses show nothing acute. Impression: 1. Nothing acute is appreciated on noncontrast head CT study. Diagnostic code #1 This report was dictated in MDT I agree with preliminary report from [facility], finalized on 08/08/19, 12:39 AM [place] Daylight Time
--- NOTE | 2019-08-08 09:38 | CR ---
Left knee: AP, lateral and sunrise patellar views of the left knee were obtained. Comparison: No previous study. Medial osteophytes are noted off the knee. Mild osteophytes are noted off the patellofemoral joint. No acute fracture or other bony abnormality is appreciated. Impression: 1. Mild degenerative change. 2. Nothing acute is appreciated on 3 view left knee exam. Diagnostic code #2 This report was dictated in MDT
--- NOTE | 2019-08-08 09:47 | CT ---
CT abdomen and pelvis Technique: Multiple axial sections were obtained from above the dome of the diaphragm inferiorly through the pubic symphysis. Intravenous contrast was utilized. No oral contrast has been given. Delayed images were also obtained through the abdomen and pelvis. Comparison: Prior CT abdomen and pelvis study of 02/24/19. Findings: 2 cysts are noted within the left lobe of the liver which were reported on chest CT study. No additional abnormality is seen within the liver. Spleen appears normal. Nodule is noted within the right adrenal gland measuring 2.0 cm which remain stable from prior exam and most likely represents a benign adenoma. Left adrenal gland is unremarkable. Surgical clips are seen from prior cholecystectomy. Spleen appears within normal limits. Pancreas is within normal limits. Kidneys show symmetric contrast enhancement. Parapelvic cysts are noted within both kidneys. No ureteral dilatation dilatation is seen. Aorta shows mild atherosclerotic change without aneurysm. No retroperitoneal adenopathy or mesenteric abnormalities are seen. No pelvic mass or adenopathy is seen. No free fluid or inflammatory change is seen. Appendix not visualized with certainty. Bone window settings were reviewed which shows disc space narrowing and vacuum phenomena within the L4-5 and L5-S1 discs. Lesser degenerative change scattered within other portions of the spine. No acute osseous finding is seen. Impression: 1. Parapelvic cysts within both kidneys. No ureteral dilatation or ureteral stone is seen. 2. Other findings believed to be incidental as noted above. Nothing acute is appreciated. Diagnostic code #2 This report was dictated in MDT I agree with preliminary report from [facility], finalized on 08/08/19, 12:46 AM Central Daylight Time
== END 2019-08-08 01:30 | disposition home or self-care (01) ==
LOC: JD.ED 22:12
DX: S10.93XA Contusion of unspecified part of neck, initial encounter (principal); S80.02XA Contusion of left knee, initial encounter; S70.12XA Contusion of left thigh, initial encounter; N13.5 Crossing vessel and stricture of ureter without hydronephrosis; E66.9 Obesity, unspecified; Z68.30 Body mass index [BMI] 30.0-30.9, adult; Z87.891 Personal history of nicotine dependence; Z88.8 Allergy status to other drugs, medicaments and biological substances; K21.9 Gastro-esophageal reflux disease without esophagitis; W55.29XA Other contact with cow, initial encounter
CPT/HCPCS: 36415; 70450; 71260; 72125; 73552; 73562; 74177; 80053; 81001; 85007; 85027; 85610; 85730; 96361; 96374; 96375; 96376; 99284; J1170; J2405; J7030; 99283

== ENCOUNTER 2019-12-06 12:20 | Emergency (ER) | payer OTHER ==
[2019-12-06] MEDS ORDERED: Famotidine 20 MG Tab PO ONE (12:35)
[2019-12-06] MEDS ORDERED: predniSONE 20 MG Tab PO ONE (12:36)
--- NOTE | 2019-12-06 12:37 | EDM.PDOC ---
ED HPI GENERAL MEDICAL PROBLEM - General Chief Complaint: Allergic Reaction Stated Complaint: ALLERGIC RX Time Seen by Provider: 12/06/19 12:28 Source of Information: Reports: Patient History Limitations: Reports: No Limitations - History of Present Illness INITIAL COMMENTS - FREE TEXT/NARRATIVE: Patient is a 64-year-old female who presents to the ED complaining of a rash to her lower extremities. The rash started last night after taking a hot shower. Patient states she rubbed CBD oil to the affected area and took Benadryl. Rash did go away for quite some time but due to the itching has come back and has persisted. The rash was initially located to the ventral aspect of her forearms after having some dental work. She suspects the cause of the rash to the forearms was coming in contact with a cleaning product. She took Benadryl and this subsided. Again the rash came back last night to her lower legs after taking a hot shower. The rash she states is hives has not relieved this morning with taken Benadryl again. States she does feel like it is a scratchy throat but notes there is no shortness of breath, cough, chest pain, nausea or vomiting, sensation of swollen tongue, abdominal pain, or any additional complaints. She does not know exactly what may have caused the rash. There is been no new medications, soaps, laundry detergents, vitamins, or any additional exposure other than noted above. In addition she denies any new foods. Treatments MANAGER MARKET RESEARCH: Reports: Other Medication(s) - Related Data Allergies Allergy/AdvReac Type Severity Reaction Status Date / Time NARCOTICS AdvReac Nausea and Uncoded 12/06/19 12:27 Vomiting Home Meds: Home Meds Omeprazole Magnesium [Prilosec Otc] 20 mg PO DAILY 02/24/19 [History] predniSONE [Prednisone] 40 mg PO QAM #8 tablet 12/06/19 [Rx] Past Medical History HEENT History: Reports: Impaired Vision Cardiovascular History: Reports: Heart Murmur Gastrointestinal History: Reports: Diverticulosis, GERD Genitourinary History: Reports: None Musculoskeletal History: Reports: Arthritis Neurological History: Reports: Migraines Psychiatric History: Reports: None Endocrine/Metabolic History: Reports: Obesity/BMI 30+ Hematologic History: Reports: None Immunologic History: Reports: None Oncologic (Cancer) History: Reports: None Dermatologic History: Reports: None - Infectious Disease History Infectious Disease History: Reports: None - Past Surgical History GI Surgical History: Reports: Appendectomy, Cholecystectomy, Colon Female Surgical History: Reports: Hysterectomy, Salpingo-Oophorectomy, Other (See Below) Social & Family History - Family History Family Medical History: Noncontributory - Tobacco Use Smoking Status *Q: Never Smoker - Caffeine Use Caffeine Use: Reports: Coffee - Recreational Drug Use Recreational Drug Use: No - Living Situation & Occupation Living situation: Reports: , with Spouse Occupation: Employed ([employer]) ED ROS ALLERGIC REACTION - Review of Systems Review Of Systems: Comprehensive ROS is negative, except as noted in HPI. ED EXAM GENERAL NO PERIP PULSE - Physical Exam Exam: See Below Exam Limited By: No Limitations General Appearance: Alert, WD/WN, No Apparent Distress, Anxious. No: Mild Distress Eye Exam: Bilateral Eye: Normal Inspection Ears: Hearing Grossly Normal Nose: Normal Inspection Throat/Mouth: Normal Inspection, Normal Oropharynx, Normal Voice, No Airway Compromise Head: Atraumatic, Normocephalic Neck: Normal Inspection, Supple, Non-Tender Respiratory/Chest: No Respiratory Distress, Lungs Clear, Normal Breath Sounds, No Accessory Muscle Use, Chest Non-Tender Cardiovascular: Normal Peripheral Pulses, Regular Rate, Rhythm, Systolic Murmur GI/Abdominal: Normal Bowel Sounds, Soft, Non-Tender, No Organomegaly, No Distention Back Exam: Full Range of Motion, Other (Excoriations noted to the flanks bilaterally. No rash present.) Extremities: Normal Range of Motion, Non-Tender, No Pedal Edema, Other (Hives noted to the inner aspect of her thighs and also along the lateral aspects of her upper thighs with some few hives noted to the anterior and lateral shins.) Neurological: Alert, Oriented, Normal Cognition Psychiatric: Normal Affect, Normal Mood, Anxious Skin Exam: Warm, Dry, Intact, Rash (As discussed above on extremities.) Course - Vital Signs Last Recorded V/S: Last Vital Signs Temp 98.3 F 12/06/19 12:24 Pulse 75 12/06/19 12:24 Resp 22 H 12/06/19 12:24 BP 153/90 H 12/06/19 12:24 Pulse Ox 97 12/06/19 12:24 - Orders/Labs/Meds Meds: Medications Discontinued Medications Generic Name Dose Route Start Last Admin Trade Name Freq PRN Reason Stop Dose Admin Famotidine 40 mg 12/06/19 12:35 Pepcid PO 12/06/19 12:36 ONETIME ONE Prednisone 40 mg 12/06/19 12:36 Prednisone PO 12/06/19 12:37 ONETIME ONE - Re-Assessments/Exams Free Text/Narrative Re-Assessment/Exam: Vital signs are stable. Patient is in no acute respiratory distress. Exam elicited hives to the inner and outer thighs as well to the lower leg. Excoriations noted to the flank region of her back from itching last night. No open wounds or sores present. I suspect this is all related to come in a contact with chemical silverware cleaner while at the dental office per patient's history. Symptoms worsened after taking a shower unrelieved at this point with taking Benadryl 1 hour prior. Suspect last night with sleeping and she became warm and with the itching caused an increase in the histamine release thus worsening of the rash. Treatment will consist of here in the ED of Pepcid 40 mg p.o. and also prednisone 40 mg p.o. She will be sent home on a short course of the prednisone for additional 4 days. She will be instructed to take Pepcid 40 mg as well every day. Benadryl 25 to 50 mg every 6 hours if rash persists. Instructed to not use any scented lotions including CBD oil. No hot showers until Sunday. Return precautions discussed with the patient. She had no further questions or concerns agrees with plan. Departure - Departure Time of Disposition: 12:48 Disposition: Home, Self-Care 01 Condition: Good Clinical Impression: Allergic reaction Qualifiers: Encounter type: initial encounter Qualified Code(s): T78.40XA - Allergy, unspecified, initial encounter - Discharge Information Prescriptions: predniSONE [Prednisone] 40 mg PO QAM #8 tablet Instructions: Allergies, Adult, [id number] Referrals: PCP,None [Primary Care Provider] - Forms: ED Department Discharge Additional Instructions: Take Pepcid 40 mg every day for the next 5 days. In addition take prednisone 40 mg every day for the next 4 days. Refrain from hot showers, itching, scented lotions, and or sweating since this may worsen symptoms. Per Your history I suspect you came in contact with a chemical silverware cleaner at the dental office they may have predicated the allergic reaction. Symptoms should subside over the next few days. Please follow-up with PCP early part of next week if symptoms persist. Return to the ED if you develop any new or worsening symptoms. Sepsis Event Note (ED) - Evaluation Sepsis Screening Result: No Definite Risk - Focused Exam Vital Signs: Vital Signs Temp Pulse Resp BP Pulse Ox 12/06/19 12:24 98.3 F 75 22 H 153/90 H 97
[2019-12-06] MEDS ORDERED: predniSONE 20 MG Tab ONE (12:40)
== END 2019-12-06 13:41 | disposition home or self-care (01) ==
LOC: JD.ED 12:20
DX: L50.0 Allergic urticaria (principal); S30.811A Abrasion of abdominal wall, initial encounter; K21.9 Gastro-esophageal reflux disease without esophagitis; E66.9 Obesity, unspecified; Z90.49 Acquired absence of other specified parts of digestive tract; Z90.710 Acquired absence of both cervix and uterus; Z79.899 Other long term (current) drug therapy; Z88.5 Allergy status to narcotic agent; Z68.27 Body mass index [BMI] 27.0-27.9, adult; X58.XXXA Exposure to other specified factors, initial encounter
CPT/HCPCS: 99283; A9270; J7512

== ENCOUNTER → 2020-01-12 | Day surgery (SDC) | payer OTHER ==
[~2020-01-12] MED LIST: Bupivacaine 0.5% 30 ML SDV ONE; Calamine/Zinc Oxide Lotion 177 ML Bottle TOP PRN; Calamine/Zinc Oxide Lotion 177 ML Bottle TOP SCH; Dexamethasone 4 MG/ML 5 ML MDV ONE; EPINEPHrine 1 MG/ML SDV ONE; Glycopyrrolate 0.2 MG/ML SDV ONE; HYDROmorphone 0.5 MG/0.5 ML Syringe IM SCH; HYDROmorphone 0.5 MG/0.5 ML Syringe IVPUSH PRN; HYDROmorphone 0.5 MG/0.5 ML Syringe IVPUSH SCH; HYDROmorphone 0.5 MG/0.5 ML Syringe ONE; Ketamine 500 mg/10 ML MDV ONE; Ketorolac 30 MG/ML SDV ONE; Lactated Ringers 1,000 ML IV SCH; Lactated Ringers 1,000 ML ONE; Lidocaine 1% 2 ML ONE; Lidocaine 1% 4 ML ONE; Lidocaine 1%/Sod Bicarbonate in NS 8.4% 1 ML Syringe IDERM PRN; Loratadine 10 MG Tab PO ONE; Midazolam 1 MG/ML 2 ML SDV ONE; Morphine 8 MG, EPINEPHrine 0.3 MG, Cefuroxime 750 MG, Ketorolac 30 MG, Sodium Chloride ... PRN; Nalbuphine 10 MG/ML Syringe IVPUSH ONE; Ondansetron 4 MG/2 ML SDV IVPUSH PRN; Ondansetron 4 MG/2 ML SDV ONE; Propofol 200 MG/20 ML SDV ONE; Rocuronium 50 MG/5 ML Vial ONE; Ropivacaine 0.5% 5 MG/ML 30 ML SDV ONE; Scopolamine 1.5 MG Transdermal Patch TOP ONE; Sodium Chloride 0.9% 10 ML Syringe FLUSH PRN; ceFAZolin 1 GM Vial ONE; diphenhydrAMINE 50 MG/ML SDV IVPUSH PRN; fentaNYL 250 MCG/5 ML SDV ONE; traMADol 50 MG Tab PO SCH
--- NOTE | 2020-01-12 07:04 | PCM.PREANE ---
Preanesthetic Assessment - Anesthesia/Transfusion/Family Hx Anesthesia History: Prior Anesthesia Without Reaction Family History of Anesthesia Reaction: No Transfusion History: No Prior Transfusion(s) - Review of Systems General: No Symptoms Pulmonary: No Symptoms Cardiovascular: No Symptoms, Other (history of a murmur as a child, EKG NSR) Gastrointestinal: No Symptoms, Other (GERD, on meds) Neurological: No Symptoms Other: Reports: Easy Bruising - Physical Assessment NPO Status Date: 01/11/20 NPO Status Time: 20:00 Vital Signs: Last Vital Signs Temp 36.2 C 01/12/20 06:40 Pulse 72 01/12/20 06:40 Resp 20 01/12/20 06:40 BP 122/76 01/12/20 06:40 Pulse Ox 97 01/12/20 06:40 Height: 1.7 m Weight: 89.811 kg ASA Class: 2 Mental Status: Alert & Oriented x3 Airway Class: Mallampati = 2 Dentition: Reports: Dentures, Edentulous Thyro-Mental Finger Breadths: 3 ROM/Head Extension: Full Lungs: Clear to Auscultation, Normal Respiratory Effort Cardiovascular: Regular Rate, Regular Rhythm - Lab Values: Laboratory Last Values MRSA (PCR) Negative 12/31/19 15:52 - Allergies Allergies/Adverse Reactions: Allergies Allergy/AdvReac Type Severity Reaction Status Date / Time acetaminophen [From Vicodin] Allergy Nausea and Verified 01/12/20 06:56 Vomiting carisoprodol [From Soma] Allergy Nausea and Verified 01/12/20 06:56 Vomiting codeine Allergy Nausea and Verified 01/12/20 06:56 Vomiting hydrocodone [From Vicodin] Allergy Nausea and Verified 01/12/20 06:56 Vomiting hydromorphone [From Dilaudid] Allergy Nausea and Verified 01/12/20 06:56 Vomiting NARCOTICS AdvReac Nausea and Uncoded 12/06/19 12:27 Vomiting - Blood Blood Available: No Product(s) Available: None - Anesthesia Plan Pre-Op Medication Ordered: None - Acknowledgements Anesthesia Type Planned: General Anesthesia Pt an Appropriate Candidate for the Planned Anesthesia: Yes Alternatives and Risks of Anesthesia Discussed w Pt/Guardian: Yes Pt/Guardian Understands and Agrees with Anesthesia Plan: Yes PreAnesthesia Questionnaire HEENT History: Reports: Impaired Vision Cardiovascular History: Reports: Heart Murmur Gastrointestinal History: Reports: Diverticulosis, GERD Genitourinary History: Reports: None Musculoskeletal History: Reports: Arthritis Neurological History: Reports: Migraines Psychiatric History: Reports: None Endocrine/Metabolic History: Reports: Obesity/BMI 30+ Hematologic History: Reports: None Immunologic History: Reports: None Oncologic (Cancer) History: Reports: None Dermatologic History: Reports: None - Infectious Disease History Infectious Disease History: Reports: None - Past Surgical History GI Surgical History: Reports: Appendectomy, Cholecystectomy, Colon Female Surgical History: Reports: Hysterectomy, Salpingo-Oophorectomy, Other (See Below) - HOME MEDS Home Medications: Home Meds Omeprazole Magnesium [Prilosec Otc] 20 mg PO DAILY 02/24/19 [History] Aspirin [Aspirin EC] 325 mg PO BID #84 tab 01/12/20 [Rx] Mv-Mn/Iron/Folic Acid/Herb 190 [Vitamin D3 Complete Caplet] 1 tab PO DAILY 01/12/20 [History] Tapentadol [Nucynta] 50 - 100 mg PO Q6H PRN #10 tab 01/12/20 [Rx] traMADol [Ultram] 50 - 100 mg PO Q6H PRN #20 tab 01/12/20 [Rx] - CURRENT (IN HOUSE) MEDS Current Meds: Current Medications Lactated Ringer's (Ringers, Lactated) 1,000 mls @ 125 mls/hr IV ASDIRECTED AIDA Stop: 01/12/20 23:00 Lidocaine/Sodium Bicarbonate (Buffered Lidocaine 1% In Ns 8.4%) 0.25 ml IDERM ONETIME PRN PRN Reason: Prior to IV Start Stop: 01/12/20 18:00 Sodium Chloride (Saline Flush) 10 ml FLUSH ASDIRECTED PRN PRN Reason: Keep Vein Open Stop: 01/12/20 18:00
--- NOTE | 2020-01-12 08:05 | PCM.SN.2 ---
- Free Text/Narrative Note: Left selective femoral nerve block at the adductor canal for post-procedure pain control under US guidance requested by Dr. Olivas. Date: 01/12/20 Time Out: 751 Start: 751 End: 0800 Chart reviewed. Consent signed. Questions answered. Appropriate monitors applied. Time out performed. Left mid-shaft femur identified with ultrasound, scanning medially of femur, the femoral artery in the adductor canal visualized, and the femoral nerve located laterally to the artery. The skin was prepped lateral to the ultrasound probe with chlorahexadine times two. The 21ga 4 insulated block needle was inserted under direct ultrasound guidance into the adductor canal. 25mL of 0.5% ropivacaine with 1:200,000 epinephrine was injected circumferentially around the nerve with intermittent negative aspiration noted. Patient tolerated the procedure well. Sterile technique noted along with sterile gloves, mask, and sterile probe cover. See picture on progress note and vital signs on nurses notes. Block completed in PACU. Rohan Walter CRNA
[2020-01-12] MEDS: Vancomycin 1 GM SDV ONE ×4 (08:57→09:32)
[2020-01-12] MEDS: Bupivacaine 0.25% 10 ML SDV ONE ×6 (08:57→09:45)
[2020-01-12] MEDS: Triamcinolone Acetonide 40 MG/ML 1 ML SDV ONE ×3 (09:34→09:45)
--- NOTE | 2020-01-12 10:16 | PCM.POSTAN ---
POST ANESTHESIA ASSESSMENT - MENTAL STATUS Mental Status: Alert, Oriented - VITAL SIGNS Vital Signs: Last Vital Signs Temp 36.2 C 01/12/20 06:40 Pulse 72 01/12/20 06:40 Resp 20 01/12/20 06:40 BP 122/76 01/12/20 06:40 Pulse Ox 97 01/12/20 06:40 - RESPIRATORY Respiratory Status: Respiratory Rate WNL, Airway Patent, O2 Saturation Stable, Supplemental Oxygen - CARDIOVASCULAR CV Status: Pulse Rate WNL, Blood Pressure Stable - GASTROINTESTINAL GI Status: No Symptoms - PAIN Pain Score: 8 (pain meds given) - POST OP HYDRATION Hydration Status: Adequate & Stable
[2020-01-12] MEDS: fentaNYL 100 MCG/2 ML SDV IVPUSH PRN ×3 (10:23→11:09)
--- NOTE | 2020-01-12 13:35 | CR ---
PROCEDURE INFORMATION: Exam: XR Left Knee Exam date and time: 01/12/2020 10:29 AM Age: 64 years old Clinical indication: Device placement; Joint replacement hardware; Prior surgery; Surgery date: Post-operative (0-2 days); Surgery type: Left knee replacement TECHNIQUE: Imaging protocol: XR Left knee. Views: 1 or 2 views. COMPARISON: CR Knee 1V or 2V Lt 12/31/2019 2:47 PM FINDINGS: Bones/joints: Status post left total knee replacement without evidence of complications. There is no evidence of joint malalignment or dislocation. Soft tissues: Air is noted within the soft tissues consistent with postoperative changes. IMPRESSION: 1. Status post left total knee replacement without evidence of complications. 2. No evidence of acute dislocation. Thank you for allowing us to participate in the care of your patient. Dictated and Authenticated by: Darryl Schneider DO 01/12/2020 2:34 PM Central Time ([place] & [place]) MARY KATE
--- NOTE | 2020-01-12 14:45 | PCM48HPAN ---
Post Anesthesia Note - EVALUATION WITHIN 48HRS OF ANESTHETIC Vital Signs in Normal Range: Yes Patient Participated in Evaluation: Yes Respiratory Function Stable: Yes Airway Patent: Yes Cardiovascular Function Stable: Yes Hydration Status Stable: Yes Pain Control Satisfactory: Yes Nausea and Vomiting Control Satisfactory: Yes Mental Status Recovered: Yes Vital Signs: Last Vital Signs Temp 36.7 C 01/12/20 14:15 Pulse 89 01/12/20 14:15 Resp 16 01/12/20 14:15 BP 125/83 01/12/20 14:15 Pulse Ox 95 01/12/20 14:15
--- NOTE | 2020-01-23 12:56 | PCM.OPNOTE ---
- General Post-Op/Procedure Note Date of Surgery/Procedure: 01/12/20 Operative Procedure(s): left total knee arthroplasty with right knee corticosteroid injection Pre Op Diagnosis: bilateral knee osteoarthritis Post-Op Diagnosis: Same Anesthesia Technique: Local, MAC, Spinal Primary Surgeon: Don Olivas Anesthesia Provider: Taylor Farmer Laminating Machine Operator: Elina Alcazar Laminating Machine Operator: Maritza Earl EBAndrew in mLs: 5 Complications: None Condition: Good Free Text/Narrative:: 4 cemented PS femur 4 press fit tibial baseplate 4 9mm PS poly 32x10 press fit patella
--- NOTE | 2020-01-23 13:56 | OR ---
DATE OF OPERATION: 01/12/2020 SURGEON: Don Olivas MD OPERATION PERFORMED: Left total knee arthroplasty with right knee corticosteroid injection. PREOPERATIVE DIAGNOSIS: Bilateral knee osteoarthritis. POSTOPERATIVE DIAGNOSIS: Bilateral knee osteoarthritis. ANESTHESIA: Local MAC with spinal. ANESTHESIA PROVIDER: Taylor Wilde. DECATOR OPERATOR: Elina Alcazar PA-C, and Maritza Earl LPN. ESTIMATED BLOOD LOSS: 5 mL. COMPLICATIONS: None. CONDITION: Stable. IMPLANTS: 1. Rajesh size 4 cemented PS femur. 2. Redmond size 4 press-fit tibial baseplate. 3. Redmond size 4, 9 mm PS X3 polyethylene. 4. Redmond size 32 x 10 mm press-fit asymmetric patella. DESCRIPTION OF PROCEDURE: The patient was identified in the preoperative holding area. Proper site was marked and identified by the surgeon. The patient was taken back to the operative theater where after adequate anesthesia, the patient's right lower extremity had a nonsterile tourniquet applied and then sterilely prepped and draped in usual sterile fashion. OR time-out was performed. The patient received 2 g IV Ancef. Right lower extremity was exsanguinated. Tourniquet was inflated to 250 mmHg. Standard anterior incision was made. Medial parapatellar arthrotomy was then created. Deep fibers of the MCL were raised. Anterior fat pad was resected. At this time, attention was turned to the patella. Patella measured a 23, it was resected to a 14 for 32 x 10 mm patella and was found to have adequate bony purchase at this time. Drill hole was then placed in the distal femur for the intramedullary distal femoral cutting guide, and 8 mm was resected off the distal femur. Sizing guide was then placed and found to be a size 4. Epicondylar axial holes were then drilled using Whitesides line and epicondyles as reference. A 4-in-1 cutting block was then placed. Anterior, posterior, and anterior-posterior chamfer cuts were then completed and found to be adequate. Attention was turned to the tibia. Posterior retractor was then placed along with mediolateral retractors. The extramedullary tibial cutting guide was then placed in the old footprint of the ACL. A 9 mm was then resected out off the lateral unaffected side. It was found to be an adequate resection. The medial and lateral meniscus were then removed as well as any posterior osteophytes. Trial implants for size 4 baseplate were then placed as well and 9 mm polyethylene insert. The patient had full flexion and extension. Patella was tracking centrally, and there was no varus or valgus instability. At this time, I stamped and drilled the tibia in the proper rotation. I drilled the femur for the press-fit femur. The tibial baseplate was then malleted into place and was found to have adequate fixation for press-fit tibia. Attention was turned to the femur, and the press-fit femur was then impacted onto the femur, and the 9 mm CS polyethylene insert was inserted. I then brought the patient's knee through range of motion. The femoral component was noted to be rocking some, so at this time, I decided I would cement. Once we took off the press-fit femur, we did cut a box cut at this time and decided to go with a PS polyethylene and cemented femur. Cement was mixed on the back table. The femur was irrigated and then completely dried. Once the cement was ready, the size 4 PS femur was cemented into place and a 9 mm PS X3 polyethylene was placed. The patient's knee was brought into full extension. Excess cement was removed, and the patella was then press-fit into place at this time. 1 L of pulse lavage irrigation with Ancef was irrigated through the knee along with IrriSept irrigation. Once the cement had dried, #2 barbed suture was used for closure of the arthrotomy after topical tranexamic acid and vancomycin powder were applied. A 2-0 Vicryl was used subcutaneously as well as Quill running suture, and Prineo was used for the skin. The patient had a sterile soft dressing applied and sent to the PACU in stable condition. After this was completed under sterile technique, 2 mL of 40 mg Kenalog and 4 mL of 0.25% Marcaine were injected to the right knee. MMODAL /[id number]
== END | disposition home or self-care (01) ==
LOC: JD.SDS 06:36 → EDSTATUS 12:45
PROVIDERS: ATTEND Orthopaedic Surgery
DX: M17.0 Bilateral primary osteoarthritis of knee (principal); G89.18 Other acute postprocedural pain; K21.9 Gastro-esophageal reflux disease without esophagitis; E66.9 Obesity, unspecified; Z91.030 Bee allergy status; Z88.5 Allergy status to narcotic agent; Z88.8 Allergy status to other drugs, medicaments and biological substances; Z79.899 Other long term (current) drug therapy; Z87.891 Personal history of nicotine dependence; Z98.890 Other specified postprocedural states; Z90.49 Acquired absence of other specified parts of digestive tract; Z68.33 Body mass index [BMI] 33.0-33.9, adult
CPT/HCPCS: 20610; 27447; 73560; 87641; 97110; 97161; 97165; A9270; C1713; C1776; J0171; J0690; J0697; J1100; J1170; J1885; J2001; J2250; J2270; J2300; J2405; J2704; J2710; J2795; J3010; J3301; J3370; J3490; J7120; 01402; 64450

== ENCOUNTER 2020-04-05 07:01 | Day surgery (SDC) | payer OTHER ==
[~2020-04-05 07:01] MED LIST changes: -Bupivacaine 0.5% 30 ML SDV ONE; -Calamine/Zinc Oxide Lotion 177 ML Bottle TOP PRN; -Calamine/Zinc Oxide Lotion 177 ML Bottle TOP SCH; -Dexamethasone 4 MG/ML 5 ML MDV ONE; -EPINEPHrine 1 MG/ML SDV ONE; -Glycopyrrolate 0.2 MG/ML SDV ONE; -HYDROmorphone 0.5 MG/0.5 ML Syringe IM SCH; -HYDROmorphone 0.5 MG/0.5 ML Syringe IVPUSH PRN; -HYDROmorphone 0.5 MG/0.5 ML Syringe IVPUSH SCH; -HYDROmorphone 0.5 MG/0.5 ML Syringe ONE; -Ketamine 500 mg/10 ML MDV ONE; -Ketorolac 30 MG/ML SDV ONE; -Lactated Ringers 1,000 ML ONE; -Lidocaine 1% 2 ML ONE; -Lidocaine 1% 4 ML ONE; -Loratadine 10 MG Tab PO ONE; -Midazolam 1 MG/ML 2 ML SDV ONE; -Morphine 8 MG, EPINEPHrine 0.3 MG, Cefuroxime 750 MG, Ketorolac 30 MG, Sodium Chloride ... PRN; -Nalbuphine 10 MG/ML Syringe IVPUSH ONE; -Ondansetron 4 MG/2 ML SDV IVPUSH PRN; -Ondansetron 4 MG/2 ML SDV ONE; -Propofol 200 MG/20 ML SDV ONE; -Rocuronium 50 MG/5 ML Vial ONE; -Ropivacaine 0.5% 5 MG/ML 30 ML SDV ONE; -Scopolamine 1.5 MG Transdermal Patch TOP ONE; +Scopolamine 1.5 MG Transdermal Patch TOP SCH; -ceFAZolin 1 GM Vial ONE; -diphenhydrAMINE 50 MG/ML SDV IVPUSH PRN; -fentaNYL 250 MCG/5 ML SDV ONE; -traMADol 50 MG Tab PO SCH
--- NOTE | 2020-04-05 07:16 | PCM.PREANE ---
Preanesthetic Assessment - Procedure Proposed Procedure: Right TKA - Anesthesia/Transfusion/Family Hx Anesthesia History: Prior Anesthesia Without Reaction Transfusion History: No Prior Transfusion(s) - Review of Systems General: No Symptoms Pulmonary: No Symptoms Cardiovascular: No Symptoms Gastrointestinal: No Symptoms Neurological: No Symptoms Other: Reports: None - Physical Assessment NPO Status Date: 04/04/20 NPO Status Time: 18:00 ASA Class: 2 Mental Status: Alert & Oriented x3 Airway Class: Mallampati = 1 Dentition: Reports: Dentures (upper) Thyro-Mental Finger Breadths: 3 Mouth Opening Finger Breadths: 3 ROM/Head Extension: Full Lungs: Clear to Auscultation, Normal Respiratory Effort Cardiovascular: Regular Rate, Regular Rhythm - Allergies Allergies/Adverse Reactions: Allergies Allergy/AdvReac Type Severity Reaction Status Date / Time acetaminophen [From Vicodin] AdvReac Nausea and Verified 04/02/20 10:12 Vomiting carisoprodol [From Soma] AdvReac Nausea and Verified 04/02/20 10:12 Vomiting codeine AdvReac Nausea and Verified 04/02/20 10:12 Vomiting hydrocodone [From Vicodin] AdvReac Nausea and Verified 04/02/20 10:12 Vomiting hydromorphone [From Dilaudid] AdvReac Nausea and Verified 04/02/20 10:12 Vomiting NARCOTICS AdvReac Nausea and Uncoded 04/02/20 10:12 Vomiting - Acknowledgements Anesthesia Type Planned: General Anesthesia Pt an Appropriate Candidate for the Planned Anesthesia: Yes Alternatives and Risks of Anesthesia Discussed w Pt/Guardian: Yes Pt/Guardian Understands and Agrees with Anesthesia Plan: Yes Additional Comments: Patient described her previous bad experience with spinal anesthesia and long history of degenerative disc disease. She prefers to have the procedure done under General Anesthesia PreAnesthesia Questionnaire HEENT History: Reports: Impaired Vision Cardiovascular History: Reports: Heart Murmur Gastrointestinal History: Reports: Diverticulosis, GERD Genitourinary History: Reports: None Musculoskeletal History: Reports: Arthritis Neurological History: Reports: Migraines Psychiatric History: Reports: None Endocrine/Metabolic History: Reports: Obesity/BMI 30+ Hematologic History: Reports: None Immunologic History: Reports: None Oncologic (Cancer) History: Reports: None Dermatologic History: Reports: None - Infectious Disease History Infectious Disease History: Reports: None - Past Surgical History HEENT Surgical History: Reports: Adenoidectomy, Tonsillectomy GI Surgical History: Reports: Appendectomy, Cholecystectomy, Colon Other GI Surgeries/Procedures: resection Female Surgical History: Reports: Hysterectomy, Salpingo-Oophorectomy, Other (See Below) - SUBSTANCE USE Tobacco Use Status *Q: Former Tobacco User Tobacco Use Within Last Twelve Months:  - HOME MEDS Home Medications: Home Meds Omeprazole Magnesium [Prilosec Otc] 20 mg PO DAILY 02/24/19 [History] Mv-Mn/Iron/Folic Acid/Herb 190 [Vitamin D3 Complete Caplet] 1 tab PO DAILY 01/12/20 [History] traMADol [Ultram] 50 - 100 mg PO Q6H PRN #20 tab 01/12/20 [Rx] Aspirin [Aspirin EC] 325 mg PO BID #84 tab 04/05/20 [Rx] Tapentadol [Nucynta] 50 - 100 mg PO Q6H PRN #40 tab 04/05/20 [Rx] - CURRENT (IN HOUSE) MEDS Current Meds: Current Medications Morphine Sulfate 8 mg/Epinephrine HCl 0.3 mg/Cefuroxime Sodium 750 mg/Ketorolac Tromethamine 30 mg/Sodium Chloride 7.9 ml 0 mg .XX ASDIRECTED PRN PRN Reason: Pain Stop: 04/05/20 23:00 Lactated Ringer's (Ringers, Lactated) 1,000 mls @ 125 mls/hr IV ASDIRECTED AIDA Stop: 04/05/20 23:00 Lidocaine/Sodium Bicarbonate (Buffered Lidocaine 1% In Ns 8.4%) 0.25 ml IDERM ONETIME PRN PRN Reason: Prior to IV Start Stop: 04/05/20 18:00 Scopolamine (Transderm-Scop) 1.5 mg TOP ONETIME AIDA Stop: 04/05/20 14:00 Last Admin: 04/05/20 07:08 Dose: 1.5 mg Documented by: Sodium Chloride (Saline Flush) 10 ml FLUSH ASDIRECTED PRN PRN Reason: Keep Vein Open Stop: 04/05/20 18:00 Discontinued Medications Bupivacaine HCl (Sensorcaine-Mpf 0.25%) Confirm Administered Dose 30 ml .ROUTE .STK-MED ONE Stop: 04/05/20 07:09 Tranexamic Acid (Cyklokapron) Confirm Administered Dose 1,000 mg .ROUTE .STK-MED ONE Stop: 04/05/20 07:09 Vancomycin HCl (Vancomycin) Confirm Administered Dose 1 gm .ROUTE .STK-MED ONE Stop: 04/05/20 07:09
[2020-04-05] MEDS ORDERED: fentaNYL 250 MCG/5 ML SDV ONE (07:33)
[2020-04-05] MEDS ORDERED: Midazolam 1 MG/ML 2 ML SDV ONE (07:33)
[2020-04-05] MEDS ORDERED: Propofol 200 MG/20 ML SDV ONE (07:33)
[2020-04-05] MEDS ORDERED: ceFAZolin 1 GM Vial ONE (07:34)
[2020-04-05] MEDS ORDERED: HYDROmorphone 0.5 MG/0.5 ML Syringe ONE (07:34)
[2020-04-05] MEDS ORDERED: Lidocaine 1% 4 ML ONE (07:34)
[2020-04-05] MEDS ORDERED: Ropivacaine 0.5% 5 MG/ML 30 ML SDV ONE (07:43)
[2020-04-05] MEDS ORDERED: Dexmedetomidine 200 MCG/2 ML SDV ONE (07:44)
[2020-04-05] MEDS ORDERED: Ondansetron 4 MG/2 ML SDV ONE (08:14)
[2020-04-05] MEDS ORDERED: Dexamethasone 4 MG/ML 5 ML MDV ONE (08:16)
[2020-04-05] MEDS ORDERED: Succinylcholine/Sod PF 100 MG/5 ML SYRINGE IV ONE (08:20)
[2020-04-05] MEDS ORDERED: fentaNYL 100 MCG/2 ML SDV IVPUSH PRN (09:03)
[2020-04-05] MEDS ORDERED: fentaNYL 100 MCG/2 ML SDV ONE (09:44)
[2020-04-05] MEDS: Bupivacaine 0.25% 10 ML SDV ONE ×3 (09:46→10:16)
[2020-04-05] MEDS: Morphine 8 MG, EPINEPHrine 0.3 MG, Cefuroxime 750 MG, Ketorolac 30 MG, Sodium Chloride ... PRN ×15 (09:47→10:16)
[2020-04-05] MEDS: Vancomycin 1 GM SDV ONE ×3 (09:48→10:23)
[2020-04-05] MEDS ORDERED: diphenhydrAMINE 50 MG/ML SDV ONE (10:19)
--- NOTE | 2020-04-05 10:54 | PCM.POSTAN ---
POST ANESTHESIA ASSESSMENT - MENTAL STATUS Mental Status: Somnolent - VITAL SIGNS Vital Signs: Last Vital Signs Temp 97.3 F 04/05/20 10:45 Pulse 81 04/05/20 07:00 Resp 12 04/05/20 10:45 BP 137/79 04/05/20 10:45 Pulse Ox 99 04/05/20 10:45 - RESPIRATORY Respiratory Status: Respiratory Rate WNL, Airway Patent, O2 Saturation Stable, Supplemental Oxygen - CARDIOVASCULAR CV Status: Pulse Rate WNL, Blood Pressure Stable - GASTROINTESTINAL GI Status: No Symptoms - PAIN Pain Score: 5 - POST OP HYDRATION Hydration Status: Adequate & Stable
--- NOTE | 2020-04-05 11:31 | PCM.PRNOTE ---
- Free Text/Narrative Note: Postoperative regional pain control requested by surgeon. Pre-op Dx: Rt knee osteoarthritis. Post-op Rx: Total Rt knee arthroplasty. Procedure: Rt Adductor canal block with U/S guidance Requesting physician: Dr. Don Metz Risks and benefits discussed with the patient preoperatively including infection, bleeding, incomplete or failed block, possible nerve damage, local anesthetic toxicity. Permit signed. Patient after general anesthesia post surgery in PACU, stable, drowsy. Time out performed. Right mid-thigh was prepped with Chloraprep x 1 and allowed to dry. Under aseptic technique, the right femoral artery and sartorius muscle were identified under ultrasound prior to needle insertion. 4" Stimuplex needle #22 G was inserted under US guidance. Under direct visualization of needle tip the injection of 0.5% Ropivacaine with 1:200k epinephrine, with 8 mg of Dexamethasone and 40 mcg of Dexmedetomidine, total of 25 mls in divided doses, maintaining negative aspiration was completed without problems. No local anesthetic toxicity was noted. Patient is stable and tolerated the procedure well. Time: 10:57 - 11:11 Date: 01/16/2019 Avery Gorman CRNA Please see attached U/S pictures.
--- NOTE | 2020-04-05 11:57 | CR ---
Right knee: AP and crosstable lateral views of the right knee were obtained. Comparison: No previous knee x-ray. Knee prosthesis is seen. Components are aligned. Underlying bony structures appear to be intact. Soft tissue air is noted. Impression: 1. Satisfactory postop radiographic appearance of recently placed right knee prosthesis. Diagnostic code #2
[2020-04-05] MEDS ORDERED: Lactated Ringers 1,000 ML ONE (13:38)
[2020-04-05] MEDS ORDERED: Loratadine 10 MG Tab PO ONE (13:39)
--- NOTE | 2020-04-14 18:35 | PCM.OPNOTE ---
- General Post-Op/Procedure Note Date of Surgery/Procedure: 04/05/20 Operative Procedure(s): right total knee arthroplasty with MARCELLO robotics Pre Op Diagnosis: right knee osteoarthrosis Post-Op Diagnosis: Same Anesthesia Technique: Local, MAC, Spinal Primary Surgeon: Don Olivas Anesthesia Provider: Avery Gorman Compliance Associate: Elina Alcazar Compliance Associate: Maritza Earl EBL in mLs: 250 Complications: None Condition: Good Free Text/Narrative:: 3 femur 4 tibia 9mm 32x10
--- NOTE | 2020-04-18 10:17 | OR ---
DATE OF OPERATION: 04/05/2020 SURGEON: Don Olivas MD OPERATION PERFORMED: Right total knee arthroplasty with Peak Rx #2 robotics. PREOPERATIVE DIAGNOSIS: Right knee osteoarthrosis. POSTOPERATIVE DIAGNOSIS: Right knee osteoarthrosis. ANESTHESIA: Local MAC with spinal. ANESTHESIA PROVIDER: Anna Carpenter. COMPLIANCE ANALYST: Elina Alcazar PA-C and Maritza Earl LPN. ESTIMATED BLOOD LOSS: 250 mL. COMPLICATIONS: None. CONDITION: Stable. IMPLANTS: 1. Rajesh size 3 press-fit CR femur. 2. [place]ly size 4 press-fit tibial baseplate. 3. Rajesh size 4, 9 mm CS polyethylene insert. 4. Rajesh size 32 x 10 mm press-fit asymmetric patella. DESCRIPTION OF PROCEDURE: The patient was identified in the preoperative holding area. Proper site was marked and identified by the surgeon. The patient was taken back to the operative theater where after adequate anesthesia, the patient's right lower extremity had a nonsterile tourniquet applied and was then sterilely prepped and draped in the usual sterile fashion. OR time-out was performed. The patient received 2 g IV Ancef. Right lower extremity was exsanguinated. Tourniquet was insufflated to 250 mmHg. This was done after the leg malik was placed. Standard anterior incision was made. Medial parapatellar arthrotomy was created. Deep fibers of the MCL were raised, and anterior fat pad was resected. Patella measured a 24 and resected to a 14 for a 32 x 10 mm patella. Attention was then turned to placing the arrays as well as the checkpoints on both the femur and the tibia for Niko robotics total knee arthroplasty. We did intra- incisional femoral pins before the array on the femur. After these were completed, checkpoints were then done, 40 points were then obtained from the femur and the tibia and found to be adequate checkpoints. The plan was then undertaken on the Peak Rx #2 robotic system first bringing the patient's knee up to extension and doing varus-valgus instability and then into 90 degrees of flexion for varus-valgus instability. At this time, the patient's plan was completed, and first attention was turned to the femur. The posterior and posterior chamfer cuts were then completed and the anterior and distal femoral cuts were completed and found all to be adequate. Attention was then turned to the tibia, and the tibial resection was completed and found to be adequate. Medial and lateral menisci were removed as well as any posterior osteophytes. The size 4 trial base plate was placed as well as size 3 trial femur. A 9 mm polyethylene was found to have full extension, full flexion with no varus-valgus instability with the Niko robot. At this time, the tibia stamped and drilled in the proper rotation. The size 4 tibial base plate was then impacted in place. The size 3 femur was impacted in place. The 9 mm polyethylene insert was impacted in place. The patient's knee was brought to full extension. The press-fit patella was then press fit into place. The tourniquet was deflated. Bleeders were cauterized. Irrisept irrigation was irrigated through the knee along with 1 L pulse lavage irrigation with Ancef. Periarticular injection was completed. Topical tranexamic acid and vancomycin powder were applied. A #2 barbed suture was used for closure of the medial parapatellar arthrotomy. A 2-0 Vicryl was used subcutaneously along with a Stratafix, and Prineo was used for closure of skin. The patient had a sterile soft dressing applied and was sent to PACU in a stable condition. FERMIN /[id number]
== END 2020-04-05 14:25 | disposition home or self-care (01) ==
LOC: JD.SDS 07:01
PROVIDERS: ATTEND Orthopaedic Surgery
DX: M17.11 Unilateral primary osteoarthritis, right knee (principal); N39.0 Urinary tract infection, site not specified; E66.9 Obesity, unspecified; G89.18 Other acute postprocedural pain; Z88.5 Allergy status to narcotic agent; Z88.8 Allergy status to other drugs, medicaments and biological substances; Z91.030 Bee allergy status; Z79.899 Other long term (current) drug therapy; Z79.82 Long term (current) use of aspirin; Z90.49 Acquired absence of other specified parts of digestive tract; Z98.890 Other specified postprocedural states; Z68.30 Body mass index [BMI] 30.0-30.9, adult
CPT/HCPCS: 27447; 73560; 97110; 97161; A9270; C1713; C1776; J0171; J0330; J0690; J0697; J1100; J1200; J1885; J2250; J2270; J2405; J2704; J2795; J3010; J3370; J3490; J7120; 01402; 64450; J1170; J2001

== ENCOUNTER 2020-07-21 07:09 | Day surgery (SDC) | payer OTHER ==
[~2020-07-21 07:09] MED LIST changes: -Scopolamine 1.5 MG Transdermal Patch TOP SCH
--- NOTE | 2020-07-21 07:25 | PCM.PREANE ---
Preanesthetic Assessment - Procedure Proposed Procedure: right knee manipulation under anesthesia - Anesthesia/Transfusion/Family Hx Anesthesia History: Prior Anesthesia Without Reaction Family History of Anesthesia Reaction: No Transfusion History: No Prior Transfusion(s) - Review of Systems General: No Symptoms Pulmonary: No Symptoms Cardiovascular: No Symptoms Gastrointestinal: No Symptoms Neurological: No Symptoms Other: Reports: None - Physical Assessment NPO Status Date: 07/20/20 NPO Status Time: 21:30 Vital Signs: 97.3 18 97% 71 149/91 Height: 5 ft 8 in Weight: 91.3 kg ASA Class: 2 Mental Status: Alert & Oriented x3 Airway Class: Mallampati = 1 Dentition: Reports: Dentures (upper) Thyro-Mental Finger Breadths: 3 Mouth Opening Finger Breadths: 3 ROM/Head Extension: Full Lungs: Clear to Auscultation, Normal Respiratory Effort Cardiovascular: Regular Rate, Regular Rhythm - Allergies Allergies/Adverse Reactions: Allergies Allergy/AdvReac Type Severity Reaction Status Date / Time cholecalciferol (vitamin D3) Allergy Cannot Verified 07/20/20 14:05 [From Vitamin D3] Remember acetaminophen [From Vicodin] AdvReac Nausea and Verified 07/20/20 14:05 Vomiting carisoprodol [From Soma] AdvReac Nausea and Verified 07/20/20 14:05 Vomiting codeine AdvReac Nausea and Verified 07/20/20 14:05 Vomiting hydrocodone [From Vicodin] AdvReac Nausea and Verified 07/20/20 14:05 Vomiting hydromorphone [From Dilaudid] AdvReac Nausea and Verified 07/20/20 14:05 Vomiting NARCOTICS AdvReac Nausea and Uncoded 07/20/20 14:05 Vomiting - Blood Blood Available: No - Acknowledgements Anesthesia Type Planned: MAC Pt an Appropriate Candidate for the Planned Anesthesia: Yes Alternatives and Risks of Anesthesia Discussed w Pt/Guardian: Yes Pt/Guardian Understands and Agrees with Anesthesia Plan: Yes PreAnesthesia Questionnaire HEENT History: Reports: Impaired Vision Cardiovascular History: Reports: Heart Murmur, Other (See Below) Other Cardiovascular History: fluid retention Respiratory History: Reports: None Gastrointestinal History: Reports: Diverticulosis, GERD Genitourinary History: Reports: None 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 3 in last 15 years) Psychiatric History: Reports: None Endocrine/Metabolic History: Reports: Obesity/BMI 30+ Hematologic History: Reports: None Immunologic History: Reports: None Oncologic (Cancer) History: Reports: None Dermatologic History: Reports: None - Infectious Disease History Infectious Disease History: Reports: None - Past Surgical History Head Surgeries/Procedures: Reports: None Cardiovascular Surgical History: Reports: None Respiratory Surgical History: Reports: None GI Surgical History: Reports: Appendectomy, Cholecystectomy, Colon Other GI Surgeries/Procedures: resection Female Surgical History: Reports: Hysterectomy, Salpingo-Oophorectomy, Other (See Below) Other Female Surgeries/Procedures: laparoscopy Neurological Surgical History: Reports: None Musculoskeletal Surgical History: Reports: Knee Replacement Oncologic Surgical History: Reports: None Dermatological Surgical History: Reports: None - SUBSTANCE USE Tobacco Use Status *Q: Former Tobacco User Tobacco Use Within Last Twelve Months: No Second Hand Smoke Exposure: No Days Per Week of Alcohol Use: 0 Recreational Drug Use History: No - HOME MEDS Home Medications: Home Meds Omeprazole Magnesium [Prilosec Otc] 20 mg PO DAILY 02/24/19 [History] Furosemide [Lasix] 20 mg PO DAILY PRN 07/20/20 [History] Gabapentin Enacarbil [Horizant] 300 mg PO BID 07/20/20 [History] - CURRENT (IN HOUSE) MEDS Current Meds: Current Medications Lactated Ringer's (Ringers, Lactated) 1,000 mls @ 125 mls/hr IV ASDIRECTED AIDA Stop: 07/21/20 23:00 Lidocaine/Sodium Bicarbonate (Lidocaine 1%/Sod Bicarbonate In Ns 8.4% 1 Ml Syringe) 0.25 ml IDERM ONETIME PRN PRN Reason: Prior to IV Start Stop: 07/21/20 18:00 Sodium Chloride (Sodium Chloride 0.9% 10 Ml Syringe) 10 ml FLUSH ASDIRECTED PRN PRN Reason: Keep Vein Open Stop: 07/21/20 18:00
[2020-07-21] MEDS ORDERED: Lidocaine 1% 4 ML ONE (07:37)
[2020-07-21] MEDS ORDERED: Propofol 200 MG/20 ML SDV ONE (07:37)
[2020-07-21] MEDS ORDERED: fentaNYL 100 MCG/2 ML SDV ONE (07:38)
[2020-07-21] MEDS ORDERED: Midazolam 1 MG/ML 2 ML SDV ONE (07:38)
[2020-07-21] MEDS ORDERED: Ketamine 500 mg/10 ML MDV ONE (07:41)
[2020-07-21] MEDS ORDERED: fentaNYL 100 MCG/2 ML SDV IVPUSH PRN (08:49)
[2020-07-21] MEDS ORDERED: Ondansetron 4 MG/2 ML SDV IVPUSH PRN (08:49)
--- NOTE | 2020-07-21 08:50 | PCM48HPAN ---
Post Anesthesia Note - EVALUATION WITHIN 48HRS OF ANESTHETIC Vital Signs in Normal Range: Yes Patient Participated in Evaluation: Yes Respiratory Function Stable: Yes Airway Patent: Yes Cardiovascular Function Stable: Yes Hydration Status Stable: Yes Pain Control Satisfactory: Yes Nausea and Vomiting Control Satisfactory: Yes Mental Status Recovered: Yes Vital Signs: Last Vital Signs Temp 97.3 F 07/21/20 07:10 Pulse 72 07/21/20 07:10 Resp 18 07/21/20 07:10 BP 149/91 H 07/21/20 07:10 Pulse Ox 97 07/21/20 07:10 0845 135/91 81 16 96% 98.0
[2020-07-21] MEDS ORDERED: diphenhydrAMINE 50 MG/ML SDV IVPUSH ONE (09:02)
[2020-07-21] MEDS ORDERED: diphenhydrAMINE 50 MG/ML SDV ONE (09:04)
[2020-07-21] MEDS ORDERED: diphenhydrAMINE 50 MG/ML SDV IVPUSH STA (09:14)
[2020-07-21] MEDS ORDERED: Ketorolac 30 MG/ML SDV IVPUSH ONE (09:30)
--- NOTE | 2020-08-03 07:17 | PCM.OPNOTE ---
- General Post-Op/Procedure Note Date of Surgery/Procedure: 07/21/20 Operative Procedure(s): right total knee manipulation under anesthesia Pre Op Diagnosis: right knee arthrofibrosis Post-Op Diagnosis: Same Anesthesia Technique: MAC Primary Surgeon: Don Olivas Anesthesia Provider: Cherie Voss Detective Precinct: Elina Alcazar EBL in mLs: 0 Complications: None Condition: Good
--- NOTE | 2020-08-03 07:57 | OR ---
DATE OF OPERATION: 07/21/2020 SURGEON: Don Olivas MD OPERATION PERFORMED: Right total knee arthroplasty manipulation under anesthesia. PREOPERATIVE DIAGNOSIS: Right knee arthrofibrosis. POSTOPERATIVE DIAGNOSIS: Right knee arthrofibrosis. ANESTHESIA: MAC sedation. ANESTHESIA PROVIDER: Cherie Voss CRNA PM HEAD COOK: Elina Alcazar PA-C. ESTIMATED BLOOD LOSS: 0 mL. COMPLICATIONS: None. CONDITION: Stable. DESCRIPTION OF PROCEDURE: The patient was identified in the preoperative holding area. Proper site was marked and identified by the surgeon. The patient was taken back to the operative theater, where after adequate anesthesia, a time-out was performed. Pre manipulation motion was then measured roughly around 95 to 100 degrees. The patient then had a manipulation done and was actually rather easy. A small amount of scar tissue could be heard, but the patient was able to easily get 128 degrees on the right side, which was actually more than on her left side, which she is very satisfied with. At this time, the patient had full easy range of motion 0 to 128 degrees and she was sent to the PACU in stable condition. We will continue with outpatient physical therapy. MMODAL /[id number]
== END 2020-07-21 09:49 | disposition home or self-care (01) ==
LOC: JD.SDS 07:09
PROVIDERS: ATTEND Orthopaedic Surgery
DX: T84.82XA Fibrosis due to internal orthopedic prosthetic devices, implants and grafts, initial encounter (principal); K21.9 Gastro-esophageal reflux disease without esophagitis; Z96.651 Presence of right artificial knee joint; Z91.030 Bee allergy status; Z88.5 Allergy status to narcotic agent; Z88.8 Allergy status to other drugs, medicaments and biological substances; Z79.899 Other long term (current) drug therapy; Z98.890 Other specified postprocedural states; Z87.891 Personal history of nicotine dependence; Z90.49 Acquired absence of other specified parts of digestive tract
CPT/HCPCS: 27599; A9270; J1200; J1885; J2250; J2704; J3010; J7120; 01380

== ENCOUNTER 2021-01-31 15:26 | Emergency (ER) | payer OTHER ==
[2021-01-31] MEDS ORDERED: Diphtheria,Pertussis(Acell),Tetanus Vaccine 0.5 ML Syringe IM ONE (16:07)
[2021-01-31] MEDS ORDERED: Acetaminophen/HYDROcodone 325-5 MG Tab PO ONE (16:07)
--- NOTE | 2021-01-31 17:01 | CR ---
Left knee: AP and lateral views of the left knee were obtained. Comparison: Prior left knee radiographic study of 08/07/19. Knee prosthesis is noted. Patellar prosthesis is also seen. Components appear aligned. Underlying bony structures appear intact. No discrete fracture or other bony abnormality is appreciated. Impression: 1. Knee prostheses which appear normally aligned. 2. No acute osseous abnormality is appreciated. Diagnostic code #2
[2021-01-31] MEDS ORDERED: Ketorolac 30 MG/ML SDV IM ONE (17:47)
[2021-01-31] MEDS ORDERED: Acetaminophen 325 MG Tab PO ONE (17:47)
--- NOTE | 2021-01-31 18:02 | EDM.PDOC ---
ED HPI GENERAL MEDICAL PROBLEM - General Chief Complaint: Head Injury Stated Complaint: FALL-FACE AND KNEE INJURY Time Seen by Provider: 01/31/21 15:43 Source of Information: Reports: Patient, Family, RN Notes Reviewed - History of Present Illness INITIAL COMMENTS - FREE TEXT/NARRATIVE: Pt tripped on a rough edge of sidewalk, fell forward injuring L knee and face. Has a small lace above mid mouth that has been bleeding. States she has an abrasion lower inner lip, no other intraoral injury. Mild Hussein. No no neck or back pain. No nausea or vomiting. No chest pain or difficulty breathing. Face/Facial Pain Score (Numeric/FACES): 10 Left Knee Pain Score (Numeric/FACES): 10 - Related Data Allergies Allergy/AdvReac Type Severity Reaction Status Date / Time cholecalciferol (vitamin D3) Allergy Cannot Verified 01/31/21 15:42 [From Vitamin D3] Remember acetaminophen [From Vicodin] AdvReac Nausea and Verified 01/31/21 15:42 Vomiting carisoprodol [From Soma] AdvReac Nausea and Verified 01/31/21 15:42 Vomiting codeine AdvReac Nausea and Verified 01/31/21 15:42 Vomiting hydrocodone [From Vicodin] AdvReac Nausea and Verified 01/31/21 15:42 Vomiting hydromorphone [From Dilaudid] AdvReac Nausea and Verified 01/31/21 15:42 Vomiting NARCOTICS AdvReac Nausea and Uncoded 07/20/20 14:05 Vomiting Home Meds: Home Meds Omeprazole Magnesium [Prilosec Otc] 20 mg PO DAILY 02/24/19 [History] Furosemide [Lasix] 20 mg PO DAILY PRN 07/20/20 [History] Gabapentin Enacarbil [Horizant] 300 mg PO BID 07/20/20 [History] Tapentadol HCl [Nucynta] 50 - 100 mg PO Q6H PRN #20 tablet 07/21/20 [Rx] Past Medical History HEENT History: Reports: Impaired Vision Cardiovascular History: Reports: Heart Murmur, Other (See Below) Other Cardiovascular History: fluid retention Respiratory History: Reports: None Gastrointestinal History: Reports: Diverticulosis, GERD Genitourinary History: Reports: None [employer] C[employer] MANAGER History: Reports: None Musculoskeletal History: Reports: Arthritis Neurological History: Reports: Migraines Psychiatric History: Reports: None Endocrine/Metabolic History: Reports: Obesity/BMI 30+ Hematologic History: Reports: None Immunologic History: Reports: None Oncologic (Cancer) History: Reports: None Dermatologic History: Reports: None - Infectious Disease History Infectious Disease History: Reports: None - Past Surgical History Head Surgeries/Procedures: Reports: None HEENT Surgical History: Reports: Adenoidectomy, Tonsillectomy Cardiovascular Surgical History: Reports: None Respiratory Surgical History: Reports: None GI Surgical History: Reports: Appendectomy, Cholecystectomy, Colon Other GI Surgeries/Procedures: resection Female Surgical History: Reports: Hysterectomy, Salpingo-Oophorectomy, Other (See Below) Other Female Surgeries/Procedures: laparoscopy Neurological Surgical History: Reports: None Musculoskeletal Surgical History: Reports: Knee Replacement Oncologic Surgical History: Reports: None Dermatological Surgical History: Reports: None Social & Family History - Family History Family Medical History: No Pertinent Family History - Tobacco Use Tobacco Use Status *Q: Never Tobacco User - Caffeine Use Caffeine Use: Reports: Coffee Other Caffeine Use: States she drinks 1 cup of coffee per day. - Living Situation & Occupation Living situation: Reports: , with Spouse Occupation: Employed ([employer] ED ROS GENERAL - Review of Systems Review Of Systems: See Below Constitutional: Reports: No Symptoms HEENT: Reports: Other (mid facial maxillary pain) Respiratory: Denies: Shortness of Breath, Pleuritic Chest Pain Cardiovascular: Denies: Chest Pain GI/Abdominal: Denies: Abdominal Pain, Nausea, Vomiting Musculoskeletal: Denies: Neck Pain, Back Pain Skin: Reports: Other (abrasion L knee) Neurological: Denies: Trouble Speaking, Weakness, Change in Speech ED EXAM, HEAD INJURY - Physical Exam Exam: See Below General Appearance: Alert, Moderate Distress Head: Other (small 1/2 cm vertical lac above upper mid lip, not gaping, slight oozing of blood a time of my exam) Eyes: Bilateral Eye: PERRL Ears: Normal External Exam Nose: Normal Inspection Throat/Mouth: Other (small abrasion inner lower lip) Neck: Non-Tender Respiratory: No Respiratory Distress, Lungs Clear, Normal Breath Sounds Cardiovascular: Regular Rate, Rhythm Back Exam: No: Vertebral Tenderness Extremities: Other (abrasion L ant knee, tender medial L knee) Neurologic: No Motor/Sensory Deficits, Oriented x 3 Skin: Normal Color, Warm/Dry Course - Vital Signs Last Recorded V/S: Last Vital Signs Temp 98.1 F 01/31/21 15:39 Pulse 88 01/31/21 15:39 Resp 18 01/31/21 15:39 BP 142/96 H 01/31/21 15:39 Pulse Ox 97 01/31/21 15:39 - Orders/Labs/Meds Meds: Medications Discontinued Medications Generic Name Dose Route Start Last Admin Trade Name Dillon PRN Reason Stop Dose Admin Acetaminophen 975 mg 01/31/21 17:47 01/31/21 18:23 Acetaminophen 325 Mg Tab PO 01/31/21 17:48 975 mg NOW ONE Administration Hydrocodone Bitart/Acetaminophen 1 tab 01/31/21 16:07 01/31/21 17:14 Acetaminophen/Hydrocodone 325-5 Mg Tab PO 01/31/21 16:08 Not Given ONETIME ONE Diphtheria/Tetanus/Acell Pertussis 0.5 ml 01/31/21 16:07 01/31/21 17:13 Diphtheria,Pertussis(Acell),Tetanus Vaccine 0.5 Ml Syringe IM 01/31/21 16:08 0.5 ml .ONCE ONE Administration Ketorolac Tromethamine 30 mg 01/31/21 17:47 01/31/21 18:22 Ketorolac 30 Mg/Ml Sdv IM 01/31/21 17:48 30 mg ONETIME ONE Administration - Re-Assessments/Exams Free Text/Narrative Re-Assessment/Exam: 01/31/21 18:07, have given a tet. update. Knee no fx. Very slight oozing only from shallow lac above upper mid lip. not gaping, will steristrip that. Discharge instr. as documented. Departure - Departure Time of Disposition: 18:09 Disposition: Home, Self-Care 01 Preliminary Cause of *Q: Sepsis & Multi System Organ Failure Clinical Impression: Fall Qualifiers: Encounter type: initial encounter Qualified Code(s): W19.XXXA - Unspecified fall, initial encounter Contusion, knee Qualifiers: Encounter type: initial encounter Laterality: left Qualified Code(s): S80.02XA - Contusion of left knee, initial encounter Knee abrasion Qualifiers: Encounter type: initial encounter Laterality: left Qualified Code(s): S80.212A - Abrasion, left knee, initial encounter Laceration of mouth Qualifiers: Encounter type: initial encounter Qualified Code(s): S01.512A - Laceration without foreign body of oral cavity, initial encounter - Discharge Information Instructions: Contusion, [id number] Referrals: PCP,Unknown [Primary Care Provider] - Forms: ED Department Discharge Additional Instructions: Try leave steristrip on for about 5 to 7 days. Rest and elevate L knee and leg as much as possible. Ice packs and elevation for swelling. Rest Sepsis Event Note (ED) - Evaluation Sepsis Screening Result: No Definite Risk
== END 2021-01-31 18:35 | disposition home or self-care (01) ==
LOC: JD.ED 15:26
DX: S01.512A Laceration without foreign body of oral cavity, initial encounter (principal); S80.02XA Contusion of left knee, initial encounter; S80.212A Abrasion, left knee, initial encounter; E66.9 Obesity, unspecified; K21.9 Gastro-esophageal reflux disease without esophagitis; Z88.8 Allergy status to other drugs, medicaments and biological substances; Z88.5 Allergy status to narcotic agent; Z79.899 Other long term (current) drug therapy; Z68.30 Body mass index [BMI] 30.0-30.9, adult; Z23 Encounter for immunization; W18.39XA Other fall on same level, initial encounter; Y92.480 Sidewalk as the place of occurrence of the external cause
CPT/HCPCS: 73560; 90471; 90715; 96372; 99283; A9270; J1885

== ENCOUNTER 2021-10-27 16:58 | Inpatient (IN) | payer MEDICARE, BC ==
[2021-10-27] MEDS ORDERED: Ondansetron 4 MG/2 ML SDV IVPUSH ONE (19:03)
[2021-10-27] MEDS ORDERED: Sodium Chloride 0.9% 1,000 ML IV SCH (19:15)
[2021-10-27] MEDS ORDERED: Morphine 4 MG/ML Syringe IVPUSH ONE (19:17)
[2021-10-27] MEDS: Sodium Chloride 0.9% 10 ML Syringe FLUSH PRN ×2 (19:58→21:16)
[2021-10-27] MEDS ORDERED: diphenhydrAMINE 50 MG/ML SDV IVPUSH ONE (20:04)
[2021-10-27] MEDS ORDERED: Iopamidol 612 MG/ML 100 ML Bottle IVPUSH ONE (20:25)
[2021-10-27] MEDS ORDERED: Iopamidol 612 MG/ML 50 ML SDV IVPUSH ONE (20:25)
[2021-10-27] MEDS ORDERED: fentaNYL 100 MCG/2 ML SDV IVPUSH ONE ×2 (20:33→21:48)
[2021-10-27] MEDS ORDERED: metroNIDAZOLE/Normal Saline 500 MG in Premix Bag 1 BAG IV ONE (21:51)
[2021-10-27] MEDS ORDERED: Levofloxacin/Dextrose 5%-Water 500 MG in Premix Bag 1 BAG IV ONE (21:51)
[2021-10-28] MEDS ORDERED: fentaNYL 100 MCG/2 ML SDV IVPUSH PRN (00:59)
[2021-10-28] MEDS: Sodium Chloride 0.9% 1,000 ML IV SCH ×2 (01:20→16:47)
[2021-10-28] MEDS ORDERED: Ondansetron 4 MG/2 ML SDV IVPUSH PRN (01:22)
[2021-10-28] MEDS ORDERED: metroNIDAZOLE/Normal Saline 500 MG in Premix Bag 1 BAG IV ONE (01:30)
[2021-10-28] MEDS ORDERED: metroNIDAZOLE/Normal Saline 100 ML ONE (01:35)
[2021-10-28] MEDS: diphenhydrAMINE 50 MG/ML SDV IVPUSH PRN ×3 (01:40→22:20)
[2021-10-28] MEDS: Acetaminophen 325 MG Tab PO PRN (05:57)
[2021-10-28] MEDS: Morphine 4 MG/ML Syringe IVPUSH PRN ×3 (05:57→22:22)
[2021-10-28] MEDS ORDERED: Gabapentin 300 MG Cap PO PRN (06:21)
[2021-10-28] MEDS ORDERED: Furosemide 20 MG Tab PO PRN (06:24)
[2021-10-28] MEDS: Pantoprazole 40 MG Tab.CR PO SCH (07:32)
[2021-10-28] MEDS: metroNIDAZOLE/Normal Saline 500 MG in Premix Bag 1 BAG IV SCH ×2 (09:11→16:47)
[2021-10-28] MEDS ORDERED: Ibuprofen 200 MG Tab PO ONE (12:00)
[2021-10-28] MEDS: Enoxaparin 40 MG/0.4 ML Syringe SUBCUT SCH (13:57)
[2021-10-28] MEDS: Levofloxacin/Dextrose 5%-Water 500 MG in Premix Bag 1 BAG IV SCH (22:25)
[2021-10-29] MEDS: metroNIDAZOLE/Normal Saline 500 MG in Premix Bag 1 BAG IV SCH ×3 (00:30→17:51)
[2021-10-29] MEDS: Pantoprazole 40 MG Tab.CR PO SCH (06:06)
[2021-10-29] MEDS: Sodium Chloride 0.9% 1,000 ML IV SCH ×2 (06:06→21:09)
[2021-10-29] MEDS ORDERED: Ibuprofen 200 MG Tab PO ONE (09:55)
[2021-10-29] MEDS: Enoxaparin 40 MG/0.4 ML Syringe SUBCUT SCH (13:07)
[2021-10-29] MEDS: Levofloxacin/Dextrose 5%-Water 500 MG in Premix Bag 1 BAG IV SCH (21:59)
[2021-10-30] MEDS: metroNIDAZOLE/Normal Saline 500 MG in Premix Bag 1 BAG IV SCH ×4 (00:37→17:29)
[2021-10-30] MEDS: Pantoprazole 40 MG Tab.CR PO SCH ×2 (05:03→06:48)
[2021-10-30] MEDS: Acetaminophen 325 MG Tab PO PRN (09:11)
[2021-10-30] MEDS: Enoxaparin 40 MG/0.4 ML Syringe SUBCUT SCH (13:34)
[2021-10-30] MEDS: Morphine 4 MG/ML Syringe IVPUSH PRN ×2 (13:39→22:32)
[2021-10-30] MEDS: diphenhydrAMINE 50 MG/ML SDV IVPUSH PRN ×2 (13:39→22:32)
[2021-10-30] MEDS: Sodium Chloride 0.9% 1,000 ML IV SCH (13:49)
[2021-10-30] MEDS: Levofloxacin/Dextrose 5%-Water 500 MG in Premix Bag 1 BAG IV SCH (21:59)
[2021-10-31] MEDS: metroNIDAZOLE/Normal Saline 500 MG in Premix Bag 1 BAG IV SCH ×2 (01:00→08:44)
[2021-10-31] MEDS: Sodium Chloride 0.9% 1,000 ML IV SCH (04:14)
[2021-10-31] MEDS: Pantoprazole 40 MG Tab.CR PO SCH ×3 (04:15→06:43)
[2021-10-31] MEDS: Enoxaparin 40 MG/0.4 ML Syringe SUBCUT SCH (12:03)
[2021-10-31] MEDS: Acetaminophen 325 MG Tab PO PRN (12:03)
[2021-10-31] MEDS ORDERED: Levofloxacin 250 MG Tab PO SCH (16:00)
[2021-11-01] MEDS ORDERED: Saccharomyces Boulardii (Probiotic) 250 MG Cap PO SCH (09:00)
== END 2021-10-31 16:39 | disposition home or self-care (01) | DRG 690 ==
LOC: JD.ED 16:58 → JD.MS 21:59
PROVIDERS: ADMIT Internal Medicine; ATTEND Internal Medicine
DX: K57.92 Diverticulitis of intestine, part unspecified, without perforation or abscess without bleeding (principal); N30.00 Acute cystitis without hematuria; K57.32 Diverticulitis of large intestine without perforation or abscess without bleeding; H54.7 Unspecified visual loss; K21.9 Gastro-esophageal reflux disease without esophagitis; Z88.8 Allergy status to other drugs, medicaments and biological substances; M19.90 Unspecified osteoarthritis, unspecified site; G43.909 Migraine, unspecified, not intractable, without status migrainosus; Z96.659 Presence of unspecified artificial knee joint; B96.20 Unspecified Escherichia coli [E. coli] as the cause of diseases classified elsewhere; Z79.899 Other long term (current) drug therapy; Z88.5 Allergy status to narcotic agent; Z90.49 Acquired absence of other specified parts of digestive tract; Z90.710 Acquired absence of both cervix and uterus
CPT/HCPCS: 36415; 74177; 80053; 81001; 83690; 85025; 86140; 87086; 87088; 87186; 96361; 96375; 99285; J1200; J2270; J2405; J3010; J3490 ×2; J7030; Q9967; 74019; 74019-26; 80048; 96365; 96376; 99284; A9270-GY; J1650; J1956

== ENCOUNTER 2022-07-22 12:31 | Emergency (ER) | payer MEDICARE, BC ==
[2022-07-22] MEDS ORDERED: Morphine 4 MG/ML Syringe IM ONE (12:54)
[2022-07-22] MEDS ORDERED: diphenhydrAMINE 50 MG/ML SDV IM ONE (12:54)
== END 2022-07-22 14:30 | disposition home or self-care (01) ==
LOC: JD.ED 12:31
DX: S93.491A Sprain of other ligament of right ankle, initial encounter (principal); K21.9 Gastro-esophageal reflux disease without esophagitis; E66.9 Obesity, unspecified; Z68.31 Body mass index [BMI] 31.0-31.9, adult; Z79.899 Other long term (current) drug therapy; Z88.5 Allergy status to narcotic agent; Z88.8 Allergy status to other drugs, medicaments and biological substances; W01.0XXA Fall on same level from slipping, tripping and stumbling without subsequent striking against object, initial encounter
CPT/HCPCS: 73590; 73610; 96372; 99283; J1200; J2270

== ENCOUNTER 2023-11-08 18:38 | Inpatient (IN) | payer MEDICARE, BC ==
[2023-11-08 19:07] LABS: BASOPHILS PERCENT AUTO 0.4 % (0.0-1.0); EOSINOPHILS PERCENT AUTO 0.2 % (0.0-6.0); HEMOGLOBIN 14.3 gm/dl (12.0-16.0); IMMATURE GRAN ABSOLUTE AUTO 0.04 K/mm3 (0.00-0.05); IMMATURE GRAN PERCENT AUTO 0.4 % (0.0-0.4); LYMPHOCYTES ABSOLUTE AUTO 0.8 K/mm3 (1.0-4.8); LYMPHOCYTES PERCENT AUTO 6.7 % (24.0-44.0); MEAN CORPUSCULAR HEMOGLOBIN 28.4 pg (28.0-32.0); MEAN CORPUSCULAR HGB CONC 32.5 g/dl (32.0-36.0); MEAN CORPUSCULAR VOLUME 87.3 fl (83.0-99.0); MEAN PLATELET VOLUME 8.5 fl (9.4-12.3); MONOCYTES ABSOLUTE AUTO 0.5 K/mm3 (0.0-0.8); MONOCYTES PERCENT AUTO 4.1 % (0.0-8.0); NEUTROPHILS PERCENT AUTO 88.2 % (41.0-71.0); PLATELET COUNT,PLT 303 K/mm3 (150-400); RED BLOOD CELL COUNT 5.04 M/mm3 (4.10-5.30); WHITE BLOOD CELL COUNT,WBC 11.35 K/mm3 (3.9-11.3)
[2023-11-08 19:08] LABS: APPEARANCE,URINE CLEAR (Clear); BILIRUBIN,URINE 1+ (Negative); COLOR,URINE DARK YELLOW (Yellow); GLUCOSE,URINE NEGATIVE (Negative); KETONES,URINE 2+ (Negative); LEUKOCYTE ESTERASE,URINE NEGATIVE (Negative); NITRITE,URINE NEGATIVE (Negative); OCCULT BLOOD,URINE NEGATIVE (Negative); PROTEIN,URINE TRACE (Negative)
[2023-11-08 19:17] LABS: BACTERIA,URINE FEW /hpf (FEW); MUCUS,URINE MODERATE /hpf (FEW); RBC,URINE 0-5 /hpf (0-5); SQUAMOUS EPITHELIAL CELLS,UR 0-5 /hpf (0-5); WBC,URINE 0-5 /hpf (0-5)
[2023-11-08 19:31] LABS: LACTIC ACID 0.6 mmol/L (0.4-2.0)
[2023-11-08 19:36] LABS: A/G RATIO 1.2 (1-2); ALBUMIN 3.7 g/dl (3.4-5.0); ANION GAP 12.5 (5-15); BILIRUBIN TOTAL 0.9 mg/dL (0.2-1.0); CALCIUM 9.6 mg/dL (8.5-10.1); EST CRCL DRUG DOSING (CG) 53.09 mL/min; POTASSIUM,K 3.5 mEq/L (3.5-5.1); PROTEIN TOTAL,TP 6.9 g/dl (6.4-8.2)
[2023-11-08] MEDS: Sodium Chloride 0.9% 10 ML Syringe FLUSH ONE (19:47)
[2023-11-08] MEDS: Sodium Chloride 0.9% 10 ML Syringe FLUSH PRN (19:47)
[2023-11-08] MEDS: Sodium Chloride 0.9% 1,000 ML IV SCH (19:47)
[2023-11-08] MEDS: Iopamidol 612 MG/ML 100 ML Bottle IVPUSH ONE (19:53)
[2023-11-08] MEDS ORDERED: Naloxone 0.4 MG/ML SDV IVPUSH PRN (20:59)
[2023-11-08] MEDS: fentaNYL 100 MCG/2 ML SDV IVPUSH ONE (21:17)
[2023-11-08] MEDS: Lactated Ringers 1,000 ML IV SCH (22:30)
[2023-11-08] MEDS ORDERED: Gabapentin 300 MG Cap PO PRN (22:44)
[2023-11-08] MEDS: Ondansetron 4 MG/2 ML SDV IV PRN (23:35)
[2023-11-08] MEDS: Morphine 2 MG/ML SYRINGE IVPUSH PRN (23:35)
[2023-11-08] MEDS: Acetaminophen 325 MG Tab PO SCH (23:50)
[2023-11-08] MEDS: Ketorolac 30 MG/ML SDV IVPUSH SCH (23:50)
[2023-11-09] MEDS: Lactated Ringers 1,000 ML IV SCH ×2 (00:53→11:25)
[2023-11-09] MEDS: traMADol 50 MG Tab PO PRN (00:58)
[2023-11-09 06:03] LABS: HEMATOCRIT 34.5 % (37.0-47.0); HEMOGLOBIN 11.3 gm/dl (12.0-16.0); MEAN CORPUSCULAR HEMOGLOBIN 28.8 pg (28.0-32.0); MEAN CORPUSCULAR HGB CONC 32.8 g/dl (32.0-36.0); MEAN CORPUSCULAR VOLUME 87.8 fl (83.0-99.0); MEAN PLATELET VOLUME 8.7 fl (9.4-12.3); PLATELET COUNT,PLT 213 K/mm3 (150-400); RED BLOOD CELL COUNT 3.93 M/mm3 (4.10-5.30); WHITE BLOOD CELL COUNT,WBC 8.69 K/mm3 (3.9-11.3)
[2023-11-09 06:38] LABS: ANION GAP 12.5 (5-15); BUN/CREATININE RATIO 22.2 (14-18); CREATININE 0.9 mg/dL (0.55-1.02); EST CRCL DRUG DOSING (CG) 60.09 mL/min; MAGNESIUM 1.6 mg/dL (1.8-2.4); PHOSPHORUS 3.7 mg/dL (2.6-4.7); POTASSIUM,K 3.5 mEq/L (3.5-5.1)
[2023-11-09 06:52] LABS: CALCIUM 8.1 mg/dL (8.5-10.1)
[2023-11-09] MEDS ORDERED: Pantoprazole 40 MG Tab.CR PO PRN (11:01)
[2023-11-09] MEDS: Enoxaparin 40 MG/0.4 ML Syringe SUBCUT SCH (11:25)
[2023-11-09] MEDS: diphenhydrAMINE 25 MG Cap PO PRN (15:51)
[2023-11-10 10:33] LABS: BASOPHILS PERCENT AUTO 0.3 % (0.0-1.0); EOSINOPHILS ABSOLUTE AUTO 0.1 K/mm3 (0.0-0.4); EOSINOPHILS PERCENT AUTO 0.5 % (0.0-6.0); HEMATOCRIT 34.6 % (37.0-47.0); HEMOGLOBIN 11.4 gm/dl (12.0-16.0); IMMATURE GRAN ABSOLUTE AUTO 0.03 K/mm3 (0.00-0.05); IMMATURE GRAN PERCENT AUTO 0.3 % (0.0-0.4); LYMPHOCYTES ABSOLUTE AUTO 1.2 K/mm3 (1.0-4.8); LYMPHOCYTES PERCENT AUTO 11.6 % (24.0-44.0); MEAN CORPUSCULAR HEMOGLOBIN 28.8 pg (28.0-32.0); MEAN CORPUSCULAR HGB CONC 32.9 g/dl (32.0-36.0); MEAN CORPUSCULAR VOLUME 87.4 fl (83.0-99.0); MEAN PLATELET VOLUME 8.6 fl (9.4-12.3); MONOCYTES ABSOLUTE AUTO 0.7 K/mm3 (0.0-0.8); MONOCYTES PERCENT AUTO 6.8 % (0.0-8.0); NEUTROPHILS PERCENT AUTO 80.5 % (41.0-71.0); PLATELET COUNT,PLT 173 K/mm3 (150-400); RED BLOOD CELL COUNT 3.96 M/mm3 (4.10-5.30); WHITE BLOOD CELL COUNT,WBC 9.93 K/mm3 (3.9-11.3)
[2023-11-10 10:51] LABS: MAGNESIUM 1.5 mg/dL (1.8-2.4); PHOSPHORUS 3.2 mg/dL (2.6-4.7)
[2023-11-10] MEDS: Sodium Chloride 0.9% 100 ML IV SCH (12:43)
[2023-11-10] MEDS: Iopamidol 755 Mg/ML 100 ML Bottle IVPUSH ONE (12:43)
[2023-11-10] MEDS: Acetaminophen 325 MG/10.15 ML PO SCH (12:53)
[2023-11-10] MEDS: Magnesium Sulfate/Water 4 GM in Premix Bag 1 BAG IV ONE (13:12)
[2023-11-10] MEDS ORDERED: Aluminum Hydroxide/Magnesium Hydroxide/Simethicone Susp 30 ML Cup PO PRN (18:51)
[2023-11-10] MEDS: Levofloxacin/Dextrose 5%-Water 750 MG in Premix Bag 1 BAG IV SCH (21:27)
[2023-11-10] MEDS: metroNIDAZOLE/Normal Saline 500 MG in Premix Bag 1 BAG IV SCH (21:28)
[2023-11-11 05:31] LABS: BASOPHILS PERCENT AUTO 0.4 % (0.0-1.0); EOSINOPHILS ABSOLUTE AUTO 0.1 K/mm3 (0.0-0.4); EOSINOPHILS PERCENT AUTO 1.5 % (0.0-6.0); HEMATOCRIT 31.3 % (37.0-47.0); HEMOGLOBIN 10.3 gm/dl (12.0-16.0); IMMATURE GRAN ABSOLUTE AUTO 0.03 K/mm3 (0.00-0.05); IMMATURE GRAN PERCENT AUTO 0.4 % (0.0-0.4); LYMPHOCYTES ABSOLUTE AUTO 0.8 K/mm3 (1.0-4.8); LYMPHOCYTES PERCENT AUTO 10.6 % (24.0-44.0); MEAN CORPUSCULAR HEMOGLOBIN 28.5 pg (28.0-32.0); MEAN CORPUSCULAR HGB CONC 32.9 g/dl (32.0-36.0); MEAN CORPUSCULAR VOLUME 86.7 fl (83.0-99.0); MEAN PLATELET VOLUME 8.8 fl (9.4-12.3); MONOCYTES ABSOLUTE AUTO 0.5 K/mm3 (0.0-0.8); MONOCYTES PERCENT AUTO 6.2 % (0.0-8.0); NEUTROPHILS ABSOLUTE AUTO 6.1 K/mm3 (1.8-7.7); NEUTROPHILS PERCENT AUTO 80.9 % (41.0-71.0); PLATELET COUNT,PLT 185 K/mm3 (150-400); RED BLOOD CELL COUNT 3.61 M/mm3 (4.10-5.30); WHITE BLOOD CELL COUNT,WBC 7.56 K/mm3 (3.9-11.3)
[2023-11-11 05:59] LABS: ANION GAP 12.5 (5-15); CALCIUM 7.8 mg/dL (8.5-10.1); CREATININE 0.8 mg/dL (0.55-1.02); EST CRCL DRUG DOSING (CG) 67.6 mL/min; MAGNESIUM 1.9 mg/dL (1.8-2.4); PHOSPHORUS 2.4 mg/dL (2.6-4.7); POTASSIUM,K 3.5 mEq/L (3.5-5.1)
[2023-11-11] MEDS ORDERED: Potassium Phosphates 30 MMOLE in Sodium Chloride 0.9% 500 ML IV SCH ×2 (08:00→09:00)
[2023-11-11] MEDS: Potassium Phosphates 30 MMOLE in Sodium Chloride 0.9% 500 ML IV ONE (09:18)
[2023-11-11] MEDS: Acetaminophen Soln 650 MG/20.3 ML UD Cup PO SCH (10:16)
[2023-11-11] MEDS: metroNIDAZOLE/Normal Saline 500 MG in Premix Bag 1 BAG IV SCH (16:25)
[2023-11-12 05:30] LABS: BASOPHILS PERCENT AUTO 0.5 % (0.0-1.0); EOSINOPHILS ABSOLUTE AUTO 0.1 K/mm3 (0.0-0.4); EOSINOPHILS PERCENT AUTO 1.9 % (0.0-6.0); HEMATOCRIT 29.3 % (37.0-47.0); HEMOGLOBIN 9.6 gm/dl (12.0-16.0); IMMATURE GRAN ABSOLUTE AUTO 0.03 K/mm3 (0.00-0.05); IMMATURE GRAN PERCENT AUTO 0.5 % (0.0-0.4); LYMPHOCYTES PERCENT AUTO 16.6 % (24.0-44.0); MEAN CORPUSCULAR HEMOGLOBIN 28.2 pg (28.0-32.0); MEAN CORPUSCULAR HGB CONC 32.8 g/dl (32.0-36.0); MEAN CORPUSCULAR VOLUME 85.9 fl (83.0-99.0); MEAN PLATELET VOLUME 8.7 fl (9.4-12.3); MONOCYTES ABSOLUTE AUTO 0.5 K/mm3 (0.0-0.8); NEUTROPHILS ABSOLUTE AUTO 4.2 K/mm3 (1.8-7.7); NEUTROPHILS PERCENT AUTO 72.5 % (41.0-71.0); PLATELET COUNT,PLT 184 K/mm3 (150-400); RED BLOOD CELL COUNT 3.41 M/mm3 (4.10-5.30); WHITE BLOOD CELL COUNT,WBC 5.78 K/mm3 (3.9-11.3)
[2023-11-12 05:54] LABS: ANION GAP 13.5 (5-15); BUN/CREATININE RATIO 8.8 (14-18); CALCIUM 7.8 mg/dL (8.5-10.1); CREATININE 0.8 mg/dL (0.55-1.02); EST CRCL DRUG DOSING (CG) 67.6 mL/min; MAGNESIUM 1.6 mg/dL (1.8-2.4); PHOSPHORUS 2.8 mg/dL (2.6-4.7); POTASSIUM,K 3.5 mEq/L (3.5-5.1)
[2023-11-12] MEDS: Lactated Ringers 1,000 ML IV SCH (10:25)
[2023-11-13 06:43] LABS: BASOPHILS PERCENT AUTO 0.6 % (0.0-1.0); EOSINOPHILS ABSOLUTE AUTO 0.1 K/mm3 (0.0-0.4); EOSINOPHILS PERCENT AUTO 1.7 % (0.0-6.0); HEMATOCRIT 31.6 % (37.0-47.0); HEMOGLOBIN 10.1 gm/dl (12.0-16.0); IMMATURE GRAN ABSOLUTE AUTO 0.06 K/mm3 (0.00-0.05); IMMATURE GRAN PERCENT AUTO 1.2 % (0.0-0.4); LYMPHOCYTES ABSOLUTE AUTO 1.1 K/mm3 (1.0-4.8); LYMPHOCYTES PERCENT AUTO 22.1 % (24.0-44.0); MEAN CORPUSCULAR HEMOGLOBIN 28.4 pg (28.0-32.0); MEAN CORPUSCULAR VOLUME 88.8 fl (83.0-99.0); MONOCYTES ABSOLUTE AUTO 0.5 K/mm3 (0.0-0.8); MONOCYTES PERCENT AUTO 9.1 % (0.0-8.0); NEUTROPHILS ABSOLUTE AUTO 3.4 K/mm3 (1.8-7.7); NEUTROPHILS PERCENT AUTO 65.3 % (41.0-71.0); PLATELET COUNT,PLT 209 K/mm3 (150-400); RED BLOOD CELL COUNT 3.56 M/mm3 (4.10-5.30); WHITE BLOOD CELL COUNT,WBC 5.15 K/mm3 (3.9-11.3)
[2023-11-13 07:24] LABS: ANION GAP 13.6 (5-15); BUN/CREATININE RATIO 8.8 (14-18); CREATININE 0.8 mg/dL (0.55-1.02); EST CRCL DRUG DOSING (CG) 67.6 mL/min; MAGNESIUM 1.5 mg/dL (1.8-2.4); PHOSPHORUS 3.4 mg/dL (2.6-4.7); POTASSIUM,K 3.6 mEq/L (3.5-5.1)
[2023-11-13 08:13] LABS: CALCIUM 8.3 mg/dL (8.5-10.1)
[2023-11-13] MEDS: Magnesium Sulfate/Water 4 GM in Premix Bag 1 BAG IV ONE (10:24)
[2023-11-13] MEDS ORDERED: Ondansetron 4 MG Tab.DIS PO PRN (20:46)
[2023-11-13] MEDS: metroNIDAZOLE 500 MG Tab PO SCH (21:13)
[2023-11-13] MEDS: Levofloxacin 750 MG Tab PO SCH (21:14)
== END 2023-11-14 11:37 | disposition home or self-care (01) | DRG 392 ==
LOC: JD.ED 18:38 → JD.MS 22:16
PROVIDERS: ADMIT Student in an Organized Health Care Education/Training Program; ATTEND Student in an Organized Health Care Education/Training Program
DX: K52.9 Noninfective gastroenteritis and colitis, unspecified (principal); K63.89 Other specified diseases of intestine; K55.069 Acute infarction of intestine, part and extent unspecified; E66.9 Obesity, unspecified; G40.909 Epilepsy, unspecified, not intractable, without status epilepticus; M19.90 Unspecified osteoarthritis, unspecified site; H54.7 Unspecified visual loss; D72.829 Elevated white blood cell count, unspecified; Z88.5 Allergy status to narcotic agent; Z88.8 Allergy status to other drugs, medicaments and biological substances; Z68.29 Body mass index [BMI] 29.0-29.9, adult; Z90.89 Acquired absence of other organs; Z90.49 Acquired absence of other specified parts of digestive tract; Z98.49 Cataract extraction status, unspecified eye; Z79.899 Other long term (current) drug therapy; Z90.710 Acquired absence of both cervix and uterus; Z90.721 Acquired absence of ovaries, unilateral; Z96.659 Presence of unspecified artificial knee joint; Z98.890 Other specified postprocedural states
CPT/HCPCS: 36415; 72191; 72191-26; 74175; 74175-26; 74177; 74177-26; 80048; 80053; 81001; 83605; 83690; 83735; 84100; 85025; 85027; 86140; 87045; 87046; 87177; 87209; 87328; 87329; 87493; 87899; 93010; 94761; 96361; 96374; 99285; 99285-25; A9270-GY; J1650; J1836; J1885; J1956; J2270; J2405; J3010; J3475; J3490; J7030; J7040; J7120; Q9967